=== PATIENT | female | born 1965 | race Caucasian/White ===

== ENCOUNTER 2018-04-24 10:09 | Inpatient (IN) ==
[2018-04-24] MEDS ORDERED: Ketorolac Inj 30 MG/ML (IVP) Vial IV.PUSH ONE (12:05)
[2018-04-24] MEDS ORDERED: Sod Chloride 0.9% Inj 1,000 ML IV.SIG ONE (12:05)
--- NOTE | 2018-04-24 12:08 | ED ---
HPI General Chief complaint: Abdominal Pain Stated complaint: left side pain/vomiting Time Seen by Provider: 04/24/18 12:00 History of Present Illness HPI narrative: Patient is a 52-year-old female presents emergency department quadrant greater than left upper quadrant abdominal pain started yesterday afternoon. This been associated with some nausea and nonbilious nonbloody emesis. No diarrhea no constipation no blood in the stool no vaginal bleeding or vaginal discharge. Patient's concerned that it might be her gallbladder because many of her family members have had gallbladder problems. No fevers. States the pain is moderate, cramping, left lower quadrant, no radiation, associated with nausea vomiting as above. Related Data Home Medications Medication Instructions Recorded Confirmed No Known Home Medications 04/24/18 04/24/18 Allergies Allergy/AdvReac Type Severity Reaction Status Date / Time No Known Allergies Allergy Verified 04/24/18 12:05 Review of Systems Except as stated in HPI: all other systems reviewed are negative PMFSH Social History Social History Second Hand Smoke Exposure: Yes Smoking Status: Current every day smoker Tobacco Type: Cigarettes How Often Do You Have a Drink Containing Alcohol: 2 to 4 times a month Recent Travel in [facility] within the Last 8 Weeks: No Recent Out of Country Travel within the Last 8 Weeks: No Exam Narrative Exam Narrative: GENERAL: Well-developed will nurse, vomiting on my initial evaluation, SKIN: Focused skin assessment warm/dry. HEAD: Atraumatic. Normocephalic. EYES: Pupils equal and round. No scleral icterus. No injection or drainage. ENT: No nasal bleeding or discharge. Mucous membranes pink and moist. NECK: Trachea midline. No JVD. CARDIOVASCULAR: Regular rate and rhythm. No murmur appreciated. RESPIRATORY: No accessory muscle use. Clear to auscultation. Breath sounds equal bilaterally. GASTROINTESTINAL: Abdomen soft, non-tender, nondistended. Hepatic and splenic margins not palpable. No rebound no percussive tenderness, no CVA tenderness. MUSCULOSKELETAL: No obvious deformities. No clubbing. No cyanosis. No edema. NEUROLOGICAL: Awake and alert. No obvious cranial nerve deficits. Motor grossly within normal limits. Normal speech. PSYCHIATRIC: Appropriate mood and affect; insight and judgment normal. Course Initial Documented Vital Signs Temperature 97.6 F 04/24/18 10:59 Pulse Rate 63 04/24/18 10:59 Respiratory Rate 16 04/24/18 10:59 Blood Pressure 157/77 H 07/15/18 10:59 Pulse Oximetry 99 04/24/18 10:59 Last Documented Vital Signs Temperature 97.6 F 04/24/18 10:59 Pulse Rate 56 L 04/24/18 13:42 Respiratory Rate 17 04/24/18 13:42 Blood Pressure 135/66 04/24/18 13:42 Pulse Oximetry 98 04/24/18 13:42 Medical Decision Making MDM Narrative Medical decision making narrative: Patient roomed in the ER, minimally elevated H/H indicated some dehydration. lipase negative, CMP negative. CT scan indicated given recurrent emesis and discomfort. Expecting diverticulitis instead find pancreatitis and gallstones which raises concern for gallstone pancreatitis. Patient discussed with Dr. Sylvester and ultimately admitted to [facility]. MRCP ordered after discussion with Dr. Sylvester. Differential Diagnosis Differential Diagnosis: Diverticulitis, diverticulosis, colitis, gastritis, gastroenteritis, pancreatitis unlikely, cholecystitis unlikely. Lab Data Result diagrams: 04/24/18 12:10 04/24/18 12:10 Lab Results 04/24/18 04/24/18 04/24/18 Range/Units 12:05 12:10 12:10 WBC 10.4 (4.0-11.0) th/mm3 RBC 4.94 (4.00-5.30) mil/mm3 Hgb 16.1 H (11.6-15.3) gm/dL Hct 47.0 H (35.0-46.0) % MCV 95.2 (80.0-100.0) fL MCH 32.6 (27.0-34.0) pg MCHC 34.3 (32.0-36.0) % RDW 13.3 (11.6-17.2) % Plt Count 256 (150-450) th/mm3 MPV 7.5 (7.0-11.0) fL Neut % (Auto) 85.1 H (16.0-70.0) % Lymph % (Auto) 11.0 (9.0-44.0) % [place] % (Auto) 3.5 (0.0-8.0) % Eos % (Auto) 0.1 (0.0-4.0) % Baso % (Auto) 0.3 (0.0-2.0) % Neut # (Auto) 8.9 H (1.8-7.7) th/mm3 Lymph # (Auto) 1.1 (1.0-4.8) th/mm3 [place] # (Auto) 0.4 (0.0-0.9) th/mm3 Eos # (Auto) 0.0 (0.0-0.4) th/mm3 Baso # (Auto) 0.0 (0.0-0.2) th/mm3 WBC Differential . Differential Comment Auto diff final Sodium 139 (136-145) meq/L Potassium 4.9 (3.5-5.1) meq/L Chloride 107 (98-107) meq/L Carbon Dioxide 25.1 (21.0-32.0) meq/L Anion Gap 7 (5-15) meq/L BUN 9 (7-18) mg/dL Creatinine 0.96 (0.50-1.00) mg/dL Estimated GFR 61 L (>89) mL/min Random Glucose 127 H (74-106) mg/dL Calcium 9.0 (8.5-10.1) mg/dL Total Bilirubin 0.5 (0.2-1.0) mg/dL AST 25 (15-37) U/L ALT 19 (10-53) U/L Alkaline Phosphatase 96 (45-117) U/L Total Protein 8.2 (6.4-8.2) g/dL Albumin 4.0 (3.4-5.0) g/dL Amylase (25-115) U/L Lipase 255 (73-393) U/L Urine Color Yellow (Yellw/Straw) Urine Clarity Hazy H (Clear) Urine pH 5.0 (5.0-8.5) Ur Specific [place] 1.020 (1.002-1.035) Urine Protein Negative (Neg-Trace) mg/dL Urine Glucose (UA) Negative (Negative) mg/dL Urine Ketones Trace H (Negative) mg/dL Urine Occult Blood Moderate H (Negative) Urine Nitrate Negative (Negative) Urine Bilirubin Negative (Negative) Urine Urobilinogen Less than 2 (Less than 2) mg/dL Ur Leukocyte Esterase Negative (Negative) Urine RBC 4 H (0-3) /hpf Urine WBC 2 (0-5) /hpf Ur Squamous Epith Cells 3 (0-5) /hpf Urine Bacteria Moderate H (None) /hpf Urine Mucus Few H (Occasional) /lpf Micro UA Comment Culture indicated Urine Culture Comments Culture indicated 04/24/18 Range/Units 12:10 WBC (4.0-11.0) th/mm3 RBC (4.00-5.30) mil/mm3 Hgb (11.6-15.3) gm/dL Hct (35.0-46.0) % MCV (80.0-100.0) fL MCH (27.0-34.0) pg MCHC (32.0-36.0) % RDW (11.6-17.2) % Plt Count (150-450) th/mm3 MPV (7.0-11.0) fL Neut % (Auto) (16.0-70.0) % Lymph % (Auto) (9.0-44.0) % [place] % (Auto) (0.0-8.0) % Eos % (Auto) (0.0-4.0) % Baso % (Auto) (0.0-2.0) % Neut # (Auto) (1.8-7.7) th/mm3 Lymph # (Auto) (1.0-4.8) th/mm3 [place] # (Auto) (0.0-0.9) th/mm3 Eos # (Auto) (0.0-0.4) th/mm3 Baso # (Auto) (0.0-0.2) th/mm3 WBC Differential Differential Comment Sodium (136-145) meq/L Potassium (3.5-5.1) meq/L Chloride (98-107) meq/L Carbon Dioxide (21.0-32.0) meq/L Anion Gap (5-15) meq/L BUN (7-18) mg/dL Creatinine (0.50-1.00) mg/dL Estimated GFR (>89) mL/min Random Glucose (74-106) mg/dL Calcium (8.5-10.1) mg/dL Total Bilirubin (0.2-1.0) mg/dL AST (15-37) U/L ALT (10-53) U/L Alkaline Phosphatase (45-117) U/L Total Protein (6.4-8.2) g/dL Albumin (3.4-5.0) g/dL Amylase 39 (25-115) U/L Lipase (73-393) U/L Urine Color (Yellw/Straw) Urine Clarity (Clear) Urine pH (5.0-8.5) Ur Specific [place] (1.002-1.035) Urine Protein (Neg-Trace) mg/dL Urine Glucose (UA) (Negative) mg/dL Urine Ketones (Negative) mg/dL Urine Occult Blood (Negative) Urine Nitrate (Negative) Urine Bilirubin (Negative) Urine Urobilinogen (Less than 2) mg/dL Ur Leukocyte Esterase (Negative) Urine RBC (0-3) /hpf Urine WBC (0-5) /hpf Ur Squamous Epith Cells (0-5) /hpf Urine Bacteria (None) /hpf Urine Mucus (Occasional) /lpf Micro UA Comment Urine Culture Comments Imaging Data Radiologist's impression: Abdomen/Pelvis CT 04/24/18 12:05 CONCLUSION: Cholelithiasis and findings of pancreatitis without abscess or pseudocyst. No common duct stone is seen Diverticulosis without evidence of diverticulitis. Cholangiopancreatography MRI 04/24/18 15:15 CONCLUSION: 1. Findings of pancreatitis as above. No evidence of common duct stone Discharge Plan Discharge Disposition Patient Disposition: 30 Still Patient Discharge Condition Condition: Stable Discharge Details Diagnosis: Pancreatitis Physicians Team ED Provider: Marquis Coreas Primary Care Provider: Primary Care Jenny Ruiz Attending Provider: Frederick Medrano Other Providers: Vinay Sylvester Status ED Status: Admitted Patient
[2018-04-24 12:40] LABS: Baso % (Auto) 0.3 % (0.0-2.0); Eos % (Auto) 0.1 % (0.0-4.0); Hemoglobin 16.1 gm/dL (11.6-15.3); Lymph # (Auto) 1.1 th/mm3 (1.0-4.8); Mean Corpuscular HGB Conc 34.3 % (32.0-36.0); Mean Corpuscular Hemoglobin 32.6 pg (27.0-34.0); Mean Corpuscular Volume 95.2 fL (80.0-100.0); Mean Platelet Volume 7.5 fL (7.0-11.0); Mono # (Auto) 0.4 th/mm3 (0.0-0.9); Mono % (Auto) 3.5 % (0.0-8.0); Neut # (Auto) 8.9 th/mm3 (1.8-7.7); Neut % (Auto) 85.1 % (16.0-70.0); Platelet Count 256 th/mm3 (150-450); Red Blood Count 4.94 mil/mm3 (4.00-5.30); Red Cell Distribution Width 13.3 % (11.6-17.2); White Blood Count 10.4 th/mm3 (4.0-11.0)
[2018-04-24 12:55] LABS: Bacteria,Urine Moderate /hpf; Bilirubin,Urine Negative (Negative); Clarity,Urine Hazy (Clear); Color,Urine Yellow (Yellw/Straw); Glucose,Urine (UA) Negative (Negative); Leukocyte Esterase,Urine Negative (Negative); Mucus,Urine Few /lpf (Occasional); Nitrite,Urine Negative (Negative); Squamous Epithelial Cell,Urine 3 /hpf (0-5)
[2018-04-24 13:10] LABS: Alanine Aminotransferase 19 U/L (10-53); Alkaline Phosphatase 96 U/L (45-117); Total Protein 8.2 g/dL (6.4-8.2)
[2018-04-24 13:13] LABS: Anion Gap 7 meq/L (5-15); Aspartate Aminotransferase 25 U/L (15-37); Blood Urea Nitrogen 9 mg/dL (7-18); Carbon Dioxide 25.1 meq/L (21.0-32.0); Chloride 107 meq/L (98-107); Glomerular Filtration Rate 61 mL/min (>89); Glucose,Random 127 mg/dL (74-106); Lipase 255 U/L (73-393); Potassium 4.9 meq/L (3.5-5.1); Sodium 139 meq/L (136-145)
--- NOTE | 2018-04-24 14:45 | CT ---
EXAM DATE: 04/24/2018 2:20 PM EDT AGE/SEX: 52 years / Female INDICATIONS: Left side abdomen pain with vomiting today CLINICAL DATA: This is the patient's initial encounter. Patient reports that signs and symptoms have been present for 1 day and indicates a pain score of 9/10. MEDICAL/SURGICAL HISTORY: None. Umbilical hernia repair. section. ORAL CONTRAST: No oral contrast ingested. RADIATION DOSE: 11.89 CTDI (mGy) COMPARISON: No prior exams available for comparison. TECHNIQUE: Multiple contiguous axial images were obtained through the abdomen and pelvis following b olus infusion of 99ML ml Omnipaque 350 (iohexol) nonionic water-soluble contrast as a single exam d ose. No oral contrast ingested. Using automated exposure control and adjustment of the mA and/or kV according to patient size, radiation dose was kept as low as reasonably achievable to obtain optimal diagnostic quality images. DICOM format image data is available electronically for review and compar lui. FINDINGS: Examination of the lung bases demonstrates no abnormality. No pleural fluid is identified. No pulmona ry nodules are present. A small hiatal hernia is present. The liver and spleen are normal in size an d no focal defects are identified. There are multiple gallstones within the gallbladder without wall thickening or pericholecystic fluid the largest measuring 10 mm there is edema involving the pancrea tic body and tail characteristic of pancreatitis. Correlation with laboratory studies would be helpfu l. No common duct stone is seen. The adrenal glands and kidneys appear normal bilaterally. No hydrone phrosis or mass lesions are identified. Examination of the pelvis demonstrates no evidence of free fluid or pelvic mass. No abnormally enlarg ed inguinal or retroperitoneal lymph nodes are present. The bladder is unremarkable. There is diverti culosis without evidence of diverticulitis. CONCLUSION: Cholelithiasis and findings of pancreatitis without abscess or pseudocyst. No common duct stone is se en Diverticulosis without evidence of diverticulitis. Electronically signed by: Delmer Wilkinson MD 04/24/2018 2:43 PM EDT
[2018-04-24] MEDS ORDERED: Morphine Sulfate Inj 8 MG/ML Vial IV.PUSH ONE (15:43)
--- NOTE | 2018-04-24 16:45 | MR ---
EXAM DATE: 04/24/2018 4:34 PM EDT AGE/SEX: 52 years / Female INDICATIONS: Abdominal pain. Abnormal CT. CLINICAL DATA: This is the patient's initial encounter. Patient reports that signs and symptoms have been present for 1 day and indicates a pain score of 9/10. MEDICAL/SURGICAL HISTORY: None. section. Umbilical hernia repair. COMPARISON: No prior exams available for comparison. TECHNIQUE: Multiplanar, multisequence images of the abdomen were obtained without contrast including dedicated cholangiographic images. FINDINGS: The liver and spleen are normal in size and signal intensity without evidence of focal mass. Inflamm atory changes in the pancreas are again identified characteristic of pancreatitis. The adrenal glands and kidneys appear normal bilaterally. No hydronephrosis or mass lesions are identified. Examination of biliary tree with multiplanar and 3-D reconstruction demonstrates no evidence of commo n duct stone. No intrahepatic or extra hepatic ductal dilatation is identified. The pancreatic duct i s unremarkable. CONCLUSION: 1. Findings of pancreatitis as above. No evidence of common duct stone Electronically signed by: Delmer Wilkinson MD 04/24/2018 4:44 PM EDT
--- NOTE | 2018-04-24 17:05 | P.HP ---
History of Present Illness Primary Care Physician: No Primary Care Physician History of Present Illness: 52-year-old white female being admitted for suspected gallstone pancreatitis. Patient was in usual state of health until around 2 AM earlier this morning she woke up with some abdominal pain. Pain is worse progressed to a 9/10. Was alleviated with bending forward. Was greater on her left upper quadrant comparison to her right. Had some nausea and subjective fevers as well. Ultimately had some bilious emesis around 4 AM, was unable to hold down liquids. The evening prior the patient reports having to greasy hotdogs. Emergency department the patient had a CT abdomen done which showed an inflamed pancreas although her lipase was within normal limits. She also has her even MRCP done which shows no common bile duct dilatation. The patient states that at least for the past month she has had intermittent dyspepsia associated specifically with greasier meals. Patient reports that since her 's about 3 years ago she did drink about a pack a night for about 4 nights a week for that year. Since then she says she is tapered off and now drinks only on the weekends. Inpatient Certification: I certify that the inpatient services were ordered in accordance with Medicare regulations governing the order. This includes certification that hospital inpatient services are reasonable and necessary and in the case of services not specified as inpatient-only under 42 CFR 419.22(n), that they are appropriately provided as inpatient services in accordance to with the 2-midnight benchmark under 43 CFR 412.3(e) Estimated Total Length of Stay (Days): 2 Plans for Post Hospital Care: Home Review of Systems All other systems reviewed negative except as stated in HPI PMFSH - History History Provided By: Patient - Tobacco History Second Hand Smoke Exposure: Yes Tobacco Use In Past 30 Days: Yes Smoking Status: Current every day smoker Tobacco Type: Cigarettes - Alcohol History How Often Do You Have a Drink Containing Alcohol: 2 to 4 times a month - Travel History Recent Travel in the [place] Within the Last 8 Weeks: No Recent Travel Out of the Country Within the Last 8 Weeks: No - Immunization History Tetanus Immunization: <5 Years Medications and Allergies Active Medications: Active Medications Sodium Chloride (Ns Inj) 1,000 mls @ 125 mls/hr IV.CONT .Q8H TOYIN Oxycodone HCl (Roxicodone) 10 mg PO Q4H PRN PRN Reason: Acute Pain 1-10 Sodium Chloride (Ns Flush) 2 ml IV.FLUSH PRN PRN PRN Reason: FLUSH AFTER USING IV ACCESS Sodium Chloride (Ns Flush) 2 ml IV.FLUSH BID TOYIN Sodium Chloride (Ns Flush) 2 ml IV.FLUSH PRN PRN PRN Reason: FLUSH AFTER USING IV ACCESS Allergies Allergy/AdvReac Type Severity Reaction Status Date / Time No Known Allergies Allergy Verified 04/24/18 12:05 Home Medications Medication Instructions Recorded Confirmed Type No Known Home Medications 04/24/18 04/24/18 History Exam Vital signs: Vital Signs 04/24/18 10:59 04/24/18 12:14 04/24/18 13:42 Temperature 97.6 F Pulse Rate 63 56 L Respiratory Rate 16 17 Blood Pressure 157/77 H 135/66 Pulse Oximetry 99 98 98 Narrative: VS: afebrile GENERAL: Lying in bed, no acute distress SKIN: Warm and dry. EYES: No scleral icterus. No injection or drainage. ENT: No nasal bleeding or discharge. Mucous membranes pink and moist. CARDIOVASCULAR: Regular rate and rhythm. no murmurs RESPIRATORY: No accessory muscle use. Clear to auscultation. Breath sounds equal bilaterally. GASTROINTESTINAL: Abdomen soft, has diffuse tenderness to palpation which worsens with deeper palpation, greater on the left upper quadrant and the right , no suprapubic tenderness palpation, no obvious masses palpated Extremities: No clubbing, cyanosis, or edema. No obvious deformities. MUSCULOSKELETAL: adequate muscle bulk and tone for age and habitus NEUROLOGICAL: Awake and alert. No obvious cranial nerve deficits. No facial droop nor slurred speech noted. PSYCHIATRIC: Appropriate mood and affect; insight and judgment normal. Results - Labs CBC & Chem 7: 04/24/18 12:10 04/24/18 12:10 Labs: Laboratory Results - last 24 hr 04/24/18 04/24/18 04/24/18 12:05 12:10 12:10 WBC 10.4 RBC 4.94 Hgb 16.1 H Hct 47.0 H MCV 95.2 MCH 32.6 MCHC 34.3 RDW 13.3 Plt Count 256 MPV 7.5 Neut % (Auto) 85.1 H Lymph % (Auto) 11.0 [place] % (Auto) 3.5 Eos % (Auto) 0.1 Baso % (Auto) 0.3 Neut # (Auto) 8.9 H Lymph # (Auto) 1.1 [place] # (Auto) 0.4 Eos # (Auto) 0.0 Baso # (Auto) 0.0 WBC Differential . Differential Comment Auto diff final Sodium 139 Potassium 4.9 Chloride 107 Carbon Dioxide 25.1 Anion Gap 7 BUN 9 Creatinine 0.96 Estimated GFR 61 L Random Glucose 127 H Calcium 9.0 Total Bilirubin 0.5 AST 25 ALT 19 Alkaline Phosphatase 96 Total Protein 8.2 Albumin 4.0 Amylase Lipase 255 Urine Color Yellow Urine Clarity Hazy H Urine pH 5.0 Ur Specific [place] 1.020 Urine Protein Negative Urine Glucose (UA) Negative Urine Ketones Trace H Urine Occult Blood Moderate H Urine Nitrate Negative Urine Bilirubin Negative Urine Urobilinogen Less than 2 Ur Leukocyte Esterase Negative Urine RBC 4 H Urine WBC 2 Ur Squamous Epith Cells 3 Urine Bacteria Moderate H Urine Mucus Few H Micro UA Comment Culture indicated Urine Culture Comments Culture indicated 04/24/18 12:10 WBC RBC Hgb Hct MCV MCH MCHC RDW Plt Count MPV Neut % (Auto) Lymph % (Auto) [place] % (Auto) Eos % (Auto) Baso % (Auto) Neut # (Auto) Lymph # (Auto) [place] # (Auto) Eos # (Auto) Baso # (Auto) WBC Differential Differential Comment Sodium Potassium Chloride Carbon Dioxide Anion Gap BUN Creatinine Estimated GFR Random Glucose Calcium Total Bilirubin AST ALT Alkaline Phosphatase Total Protein Albumin Amylase 39 Lipase Urine Color Urine Clarity Urine pH Ur Specific [place] Urine Protein Urine Glucose (UA) Urine Ketones Urine Occult Blood Urine Nitrate Urine Bilirubin Urine Urobilinogen Ur Leukocyte Esterase Urine RBC Urine WBC Ur Squamous Epith Cells Urine Bacteria Urine Mucus Micro UA Comment Urine Culture Comments - Imaging Impressions Abdomen/Pelvis CT 04/24/18 12:05 CONCLUSION: Cholelithiasis and findings of pancreatitis without abscess or pseudocyst. No common duct stone is seen Diverticulosis without evidence of diverticulitis. Cholangiopancreatography MRI 04/24/18 15:15 CONCLUSION: 1. Findings of pancreatitis as above. No evidence of common duct stone Caprini VTE Risk Assessment Caprini VTE Risk Assessment: Moderate/High Risk (score >= 2) Caprini Risk Assessment Model: Point Value = 1 Point Value = 2 Point Value = 3 Point Value = 5 Age 41-60 Minor surgery BMI > 25 kg/m2 Swollen legs Varicose veins or History of unexplained or recurrent spontaneous Oral contraceptives or hormone replacement Sepsis (< 1 month) Serious lung disease, including pneumonia (< 1 month) Abnormal pulmonary function Acute myocardial infarction Congestive heart failure (< 1 month) History of inflammatory bowel disease Medical patient at bed rest Age 61-74 Arthroscopic surgery Major open surgery (> 45 min) Laparoscopic surgery (> 45 min) Malignancy Confined to bed (> 72 hours) Immobilizing plaster cast Central venous access Age >= 75 History of VTE Family history of VTE Factor V Leiden Prothrombin [id number] Lupus anticoagulant Anticardiolipin antibodies Elevated serum homocysteine Heparin-induced thrombocytopenia Other congenital or acquired thrombophilia Stroke (< 1 month) Elective arthroplasty Hip, pelvis, or leg fracture Acute spinal cord injury (< 1 month) Prophylaxis Regimen: Total Risk Factor Score Risk Level Prophylaxis Regimen 0-1 Low Early ambulation 2 Moderate Order ONE of the following: *Sequential Compression Device (SCD) *Heparin 5000 units SQ BID 3-4 Higher Order ONE of the following medications: *Heparin 5000 units SQ TID *Enoxaparin/Lovenox 40 mg SQ daily (WT < 150 kg, CrCl > 30 mL/min) *Enoxaparin/Lovenox 30 mg SQ daily (WT < 150 kg, CrCl > 10-29 mL/min) *Enoxaparin/Lovenox 30 mg SQ BID (WT < 150 kg, CrCl > 30 mL/min) AND/OR *Sequential Compression Device (SCD) 5 or more Highest Order ONE of the following medications: *Heparin 5000 units SQ TID (Preferred with Epidurals) *Enoxaparin/Lovenox 40 mg SQ daily (WT < 150 kg, CrCl > 30 mL/min) *Enoxaparin/Lovenox 30 mg SQ daily (WT < 150 kg, CrCl > 10-29 mL/min) *Enoxaparin/Lovenox 30 mg SQ BID (WT < 150 kg, CrCl > 30 mL/min) AND *Sequential Compression Device (SCD) Assessment and Plan - Plan 52-year-old white female being admitted for suspected gallstone pancreatitis Abdominal pain -Likely gallstone pancreatitis as the patient's pain is much improved and MRCP is negative even though lipase is also negative, likely that pancreas has not had enough time to react to secrete large amounts of lipase as this is a very early presentation clinically speaking -GI consulted, following -Pain medications as needed as well as IVFs -We will obtain gallbladder ultrasound and may consider HIDA scan -N.p.o. for now, may advance to clear liquid diet as tolerated likely tomorrow morning assuming further imaging studies are negative
[2018-04-24] MEDS: Sod Chloride 0.9% Inj 1,000 ML IV.CONT SCH (17:32)
--- NOTE | 2018-04-24 18:43 | US ---
EXAM DATE: 04/24/2018 6:36 PM EDT AGE/SEX: 52 years / Female INDICATIONS: Right upper quadrant pain. CLINICAL DATA: This is the patient's initial encounter. Patient reports that signs and/or symptoms h ave been present for 1 day and indicates a pain score of 4/10. MEDICAL/SURGICAL HISTORY: . Right upper quadrant pain. . COMPARISON: [facility] – [place], CT ABDOMEN & PELVIS W CONTRAST, 04/24/2018. . MEASUREMENTS: Liver:__ 15.6 cm. Common Bile Duct:__ 3mm. FINDINGS: Liver: Normal echotexture without focal lesion or ductal dilatation. Portal Vein: Hepatopedal flow seen in portal vein. Common Duct: No intraluminal mass or stone visualized. Gallbladder: There is a 2.6 cm x 0.3 x 0.5 cm calcification seen in the gallbladder fossa R centimet er gallstone within a collapsed gallbladder. Pancreas: Not well visualized. Right Kidney: Normal echotexture and cortical thickness. No mass or hydronephrosis. Other: None. CONCLUSION: Gallstone. Electronically signed by: Phani Riojas MD 04/24/2018 6:42 PM EDT
[2018-04-25] MEDS: Sod Chloride 0.9% Inj 1,000 ML IV.CONT SCH ×3 (01:37→16:20)
--- NOTE | 2018-04-25 11:05 | P.CONGI ---
History of Present Illness Consult date: 04/25/18 Consult reason: Pancreatitis Chief complaint: pancreatitis, possible gallstone related History of Present Illness: This is a 52 yo F who presented to the ER yesterday with complaints of abdominal pain that began at 230 in the morning yesterday, pain started suddenly , located in her epigastric and LUQ and radiates around to her back and under her ribs. Describes pain as aching and constant, states the pain was causing her to be restless because she could not get comfortable. Pt reports she began vomiting at 630 yesterday morning, bile colored, denies hematemesis and coffee ground emesis. Pt reports occasional heartburn, but states maybe only once a month. Denies recent unintentional weight loss and changes in bowel movements. Since admission pt has had CT and MRCP which were both consistent with pancreatitis. Pt denies history of pancreatitis. Reports ETOH, couple times a week, has either 2-3 glasses of wine or 3-4 beers when she drinks. Smokes 1/2 PPD. Denies NSAID use. Has never had EGD or colonoscopy before. Of note, pt reports strong family history of needing to have cholecystectomy, imaging does reveal cholelithiasis. Pt reports occasional RUQ pain after eating meals. Since admission, pt reports significant improvement in symptoms. States she hasn 't needed nausea medication since last night and hasn't needed pain medication since early this morning and the pain is well controlled. <Sariah Garces - Last Filed: 04/25/18 10:49> Review of Systems Gastrointestinal: Reports abdominal pain, Reports heartburn, Reports nausea, Reports vomiting, Denies black, tarry stools, Denies bright, red blood in stools , Denies coffee ground vomit, Denies vomiting blood <Sariah Garces - Last Filed: 04/25/18 10:49> PMFSH - History History Provided By: Patient - Medical History Medical History: Medical History (Last Updated 04/24/18 @ 22:40 by Promise Joaquin RN) delivery delivered - Surgical History Surgical History: Surgical History (Last Updated 04/24/18 @ 22:40 by Promise Joaquin RN) History of umbilical hernia repair - Tobacco History Second Hand Smoke Exposure: No Tobacco Use In Past 30 Days: Yes Smoking Status: Heavy tobacco smoker Tobacco Type: Cigarettes - Alcohol History How Often Do You Have a Drink Containing Alcohol: 2 to 3 times a week - Substance Use History Substance History: No History of Abuse - Travel History Recent Travel in the [place] Within the Last 8 Weeks: No Recent Travel Out of the Country Within the Last 8 Weeks: No - Immunization History Tetanus Immunization: <5 Years <Sariah Garces - Last Filed: 04/25/18 10:49> - Medical History Medical History: Medical History (Last Updated 04/24/18 @ 22:40 by Promise Joaquin RN) delivery delivered - Surgical History Surgical History: Surgical History (Last Updated 04/24/18 @ 22:40 by Promise Joaquin, ZHANE) History of umbilical hernia repair <Brennan Reese - Last Filed: 04/27/18 15:29> Medications and Allergies Active Medications: Active Medications Sodium Chloride (Ns Inj) 1,000 mls @ 125 mls/hr IV.CONT .Q8H [facility] Last Admin: 04/25/18 08:18 Dose: 125 mls/hr Ondansetron HCl (Zofran Odt) 4 mg PO Q6H PRN PRN Reason: NAUSEA Last Admin: 04/24/18 19:49 Dose: 4 mg Oxycodone HCl (Roxicodone) 10 mg PO Q4H PRN PRN Reason: Acute Pain 1-10 Last Admin: 04/25/18 00:02 Dose: 10 mg Sodium Chloride (Ns Flush) 2 ml IV.FLUSH PRN PRN PRN Reason: FLUSH AFTER USING IV ACCESS Sodium Chloride (Ns Flush) 2 ml IV.FLUSH BID [facility] Last Admin: 04/25/18 08:18 Dose: Not Given Sodium Chloride (Ns Flush) 2 ml IV.FLUSH PRN PRN PRN Reason: FLUSH AFTER USING IV ACCESS <Sariah Garces - Last Filed: 04/25/18 10:49> Active Medications: Active Medications Hydrocodone Bitart/Acetaminophen ([place] 5/325) 1 tab PO Q4H PRN PRN Reason: pain 1-5 Hydrocodone Bitart/Acetaminophen ([place] 5/325) 2 tab PO Q4H PRN PRN Reason: Pain 6-10 Last Admin: 04/27/18 11:10 Dose: 2 tab Hydromorphone/Sodium Chloride (Dilaudid Inspector Dials Inj) 6 mg in 30 mls @ 0 mls/hr [facility] UNSCH PRN PRN Reason: per [facility] parameters Last Admin: 04/27/18 07:25 Dose: 0 mls/hr Sodium Chloride (Ns Inj) 1,000 mls @ 84 mls/hr IV.CONT .[id number] [facility] Naloxone HCl (Narcan Inj) 0.4 mg IV.PUSH PRN PRN PRN Reason: SEE LABEL COMMENTS Ondansetron HCl (Zofran Odt) 4 mg PO Q6H PRN PRN Reason: NAUSEA Last Admin: 04/26/18 19:52 Dose: 4 mg Sodium Chloride (Ns Flush) 2 ml IV.FLUSH BID [facility] Last Admin: 04/27/18 12:26 Dose: Not Given Sodium Chloride (Ns Flush) 2 ml IV.FLUSH PRN PRN PRN Reason: FLUSH AFTER USING IV ACCESS <Brennan Reese E - Last Filed: 04/27/18 15:29> Allergies Allergy/AdvReac Type Severity Reaction Status Date / Time No Known Allergies Allergy Verified 04/24/18 12:05 Home Medications Medication Instructions Recorded Confirmed Type No Known Home Medications 04/24/18 04/24/18 History Exam Vital signs: Vital Signs 04/24/18 10:59 04/24/18 12:14 04/24/18 13:42 Temperature 97.6 F Pulse Rate 63 56 L Respiratory Rate 16 17 Blood Pressure 157/77 H 135/66 Pulse Oximetry 99 98 98 04/24/18 17:52 04/24/18 19:44 04/24/18 23:41 Temperature 98.1 F 98.2 F Pulse Rate 60 62 59 L Respiratory Rate 17 18 20 Blood Pressure 124/74 116/78 128/69 Pulse Oximetry 98 97 96 04/25/18 03:54 04/25/18 06:00 04/25/18 08:00 Temperature 98.3 F 98.8 F Pulse Rate 58 L 60 Respiratory Rate 20 18 Blood Pressure 99/54 L 102/63 103/56 L Pulse Oximetry 96 94 L Intake & Output 04/24/18 04/25/18 04/25/18 18:59 06:59 18:59 Intake Total 2029 1000 / 1000 Balance 2029 1000 / 1000 Intake: IV 2000 / 2000 1000 / 1000 NS Inj 1,000 ML @ 125 mls/hr IV 1000 / 1000 1000 / 1000 .CONT .Q8H [facility] Rx#:[id number] Oral Other: # Voids 1 Date of Last Bowel Movement 04/24/18 - Constitutional no acute distress - Routine HEENT Exam Head: Present: normocephalic, atraumatic - Routine Respiratory Exam Present: CTA bilaterally. Absent: accessory muscle use - Routine Cardiovascular Exam Present: RRR - Routine Abdominal Exam Present: soft, normoactive bowel sounds, tenderness (mild epigastric and LUQ tenderness ). Absent: distended, rebound, guarding, firm - Routine Skin Exam Present: dry, warm - Routine Neurological Exam Present: alert, oriented X3 <Sariah Garces - Last Filed: 04/25/18 10:49> Vital signs: Vital Signs 04/26/18 15:30 04/26/18 15:45 04/26/18 16:00 Temperature Pulse Rate 63 69 58 L Respiratory Rate 16 16 18 Blood Pressure 127/71 124/67 124/74 Pulse Oximetry 95 97 95 04/26/18 16:15 04/26/18 16:30 04/26/18 16:45 Temperature Pulse Rate 69 64 58 L Respiratory Rate 18 18 18 Blood Pressure 113/64 124/70 127/76 Pulse Oximetry 96 95 95 04/26/18 17:00 04/26/18 17:59 04/26/18 20:00 Temperature 97.7 F 97.8 F 98 F Pulse Rate 65 59 L 51 L Respiratory Rate 19 17 17 Blood Pressure 115/67 120/73 133/68 Pulse Oximetry 96 96 97 04/27/18 00:00 04/27/18 04:00 04/27/18 08:00 Temperature 98.1 F 98.3 F 98.3 F Pulse Rate 56 L 59 L 67 Respiratory Rate 17 17 5 L Blood Pressure 142/76 H 139/74 119/62 Pulse Oximetry 92 L 95 94 L 04/27/18 12:00 04/27/18 12:24 Temperature 98.1 F Pulse Rate 62 Respiratory Rate 18 18 Blood Pressure 136/66 Pulse Oximetry 96 Intake & Output 04/26/18 04/27/18 04/27/18 18:59 06:59 18:59 Intake Total 4000 / 4000 1240 / 1240 Output Total 850 / 850 715 / 715 Balance 3150 / 3150 525 / 525 Weight 78.5 kg Intake: IV 1000 / 1000 1000 / 1000 NS Inj 1,000 ML @ 125 mls/hr IV 1000 / 1000 1000 / 1000 .CONT .Q8H [facility] Rx#:[id number] Oral 0 / 0 240 / 240 Anesthesia Amount 3000 / 3000 Output: Urine 300 / 300 600 / 600 Estimated Blood Loss 500 / 500 Wound Drainage 50 / 50 115 / 115 # 1 Abdomen 50 / 50 115 / 115 Other: # Voids 1 3 Date of Last Bowel Movement 04/24/18 # Bowel Movements 0 <Brennan Reese E - Last Filed: 04/27/18 15:29> Results - Labs CBC & Chem 7: 04/24/18 12:10 04/24/18 12:10 Labs: Laboratory Results - last 24 hr 04/24/18 04/24/18 04/24/18 12:05 12:10 12:10 WBC 10.4 RBC 4.94 Hgb 16.1 H Hct 47.0 H MCV 95.2 MCH 32.6 MCHC 34.3 RDW 13.3 Plt Count 256 MPV 7.5 Neut % (Auto) 85.1 H Lymph % (Auto) 11.0 [place] % (Auto) 3.5 Eos % (Auto) 0.1 Baso % (Auto) 0.3 Neut # (Auto) 8.9 H Lymph # (Auto) 1.1 [place] # (Auto) 0.4 Eos # (Auto) 0.0 Baso # (Auto) 0.0 WBC Differential . Differential Comment Auto diff final Sodium 139 Potassium 4.9 Chloride 107 Carbon Dioxide 25.1 Anion Gap 7 BUN 9 Creatinine 0.96 Estimated GFR 61 L Random Glucose 127 H Calcium 9.0 Total Bilirubin 0.5 AST 25 ALT 19 Alkaline Phosphatase 96 Total Protein 8.2 Albumin 4.0 Amylase Lipase 255 Urine Color Yellow Urine Clarity Hazy H Urine pH 5.0 Ur Specific [place] 1.020 Urine Protein Negative Urine Glucose (UA) Negative Urine Ketones Trace H Urine Occult Blood Moderate H Urine Nitrate Negative Urine Bilirubin Negative Urine Urobilinogen Less than 2 Ur Leukocyte Esterase Negative Urine RBC 4 H Urine WBC 2 Ur Squamous Epith Cells 3 Urine Bacteria Moderate H Urine Mucus Few H Micro UA Comment Culture indicated Urine Culture Comments Culture indicated 04/24/18 12:10 WBC RBC Hgb Hct MCV MCH MCHC RDW Plt Count MPV Neut % (Auto) Lymph % (Auto) [place] % (Auto) Eos % (Auto) Baso % (Auto) Neut # (Auto) Lymph # (Auto) [place] # (Auto) Eos # (Auto) Baso # (Auto) WBC Differential Differential Comment Sodium Potassium Chloride Carbon Dioxide Anion Gap BUN Creatinine Estimated GFR Random Glucose Calcium Total Bilirubin AST ALT Alkaline Phosphatase Total Protein Albumin Amylase 39 Lipase Urine Color Urine Clarity Urine pH Ur Specific [place] Urine Protein Urine Glucose (UA) Urine Ketones Urine Occult Blood Urine Nitrate Urine Bilirubin Urine Urobilinogen Ur Leukocyte Esterase Urine RBC Urine WBC Ur Squamous Epith Cells Urine Bacteria Urine Mucus Micro UA Comment Urine Culture Comments - Imaging Impressions Gallbladder Ultrasound 04/24/18 00:00 CONCLUSION: Gallstone. Abdomen/Pelvis CT 04/24/18 12:05 CONCLUSION: Cholelithiasis and findings of pancreatitis without abscess or pseudocyst. No common duct stone is seen Diverticulosis without evidence of diverticulitis. Cholangiopancreatography MRI 04/24/18 15:15 CONCLUSION: 1. Findings of pancreatitis as above. No evidence of common duct stone <Sariah Garces - Last Filed: 04/25/18 10:49> - Labs CBC & Chem 7: 04/27/18 08:28 04/27/18 08:28 Labs: Laboratory Results - last 24 hr 04/26/18 04/26/18 04/27/18 13:46 15:45 08:28 WBC 9.6 RBC 3.38 L Hgb 11.2 L Hct 32.2 L MCV 95.3 MCH 33.2 MCHC 34.9 RDW 13.1 Plt Count 179 MPV 7.6 Neut % (Auto) 81.7 H Lymph % (Auto) 10.6 [place] % (Auto) 7.6 Eos % (Auto) 0.0 Baso % (Auto) 0.1 Neut # (Auto) 7.8 H Lymph # (Auto) 1.0 [place] # (Auto) 0.7 Eos # (Auto) 0.0 Baso # (Auto) 0.0 WBC Differential . Differential Comment Auto diff final Sodium Potassium Chloride Carbon Dioxide Anion Gap BUN Creatinine Estimated GFR Random Glucose Calcium Total Bilirubin AST ALT Alkaline Phosphatase Total Protein Albumin Blood Type A Positive Antibody Screen Positive H Antibody Identification Anti-E Antigen Identification E Antigen - NEGATIVE Direct Antiglob Test Negative MTS Gel Crossmatch See Detail 04/27/18 08:28 WBC RBC Hgb Hct MCV MCH MCHC RDW Plt Count MPV Neut % (Auto) Lymph % (Auto) [place] % (Auto) Eos % (Auto) Baso % (Auto) Neut # (Auto) Lymph # (Auto) [place] # (Auto) Eos # (Auto) Baso # (Auto) WBC Differential Differential Comment Sodium 141 Potassium 4.7 D Chloride 108 H Carbon Dioxide 23.0 Anion Gap 10 BUN 6 L Creatinine 0.73 Estimated GFR 83 L Random Glucose 92 Calcium 8.6 Total Bilirubin 0.5 AST 89 H ALT 58 H Alkaline Phosphatase 71 Total Protein 5.9 L Albumin 2.8 L Blood Type Antibody Screen Antibody Identification Antigen Identification Direct Antiglob Test MTS Gel Crossmatch - Imaging Impressions Cholangiogram,Operative 04/26/18 00:00 CONCLUSION: Filling defects visualized initially are not identified at the end of the study. <Brennan Reese - Last Filed: 04/27/18 15:29> Assessment and Plan (1) Pancreatitis Status: Acute Code(s): K85.90 - Acute pancreatitis without necrosis or infection, unspecified - Plan Assessment: - Pancreatitis visible on MRCP and CT abdomen and pelvis with lipase WNL. Pt presented to ER with complaints of abdominal pain that began suddenly at 230 yesterday morning, aching, constant, located in LUQ and epigastric area and radiating under her L ribcage and into her back- associated nausea and vomiting- began at 630 yesterday morning, denies hematemesis and coffee ground emesis. Symptoms improved since admission, has not needed antiemetics since last night and pain well controlled with last pain med early this morning. Occasional heartburn, not more than once a month. Does reports some RUQ pain after meals, imaging revealed cholelithiasis. Denies history of pancreatitis. ETOH- a few times a week- either 2-3 glasses of wine or 3-4 beers. Has never had EGD or colonoscopy MRCP --> Pancreatitis, no evidence of choledocholithiasis CT abdomen and pelvis W IV contrast --> Pancreatitis, no abscess or pseudocyst. Diverticulosis without diverticulitis Gallbladder US --> Cholelithiasis ?Biliary pancreatitis (although all labs currently WNL) vs ETOH Plan: Start clear liquid diet Repeat labs today IVF Antiemetics PRN Pain medication PRN ETOH cessation Would likely benefit from cholecystectomy at some point- she is known to [place] surgeons, can be done OP Further recommendations based on clinical course Pt has been seen and examined by myself and Dr. Reese and this note is written on his behalf <Sariah Garces - Last Filed: 04/25/18 10:49> (1) Pancreatitis Status: Acute Code(s): K85.90 - Acute pancreatitis without necrosis or infection, unspecified - Attending Attestation Patient seen and examined Agree with above Continue with current supportive care Monitor labs <Brennan Reese - Last Filed: 04/27/18 15:29>
[2018-04-25 14:06] LABS: Baso % (Auto) 0.3 % (0.0-2.0); Eos # (Auto) 0.1 th/mm3 (0.0-0.4); Eos % (Auto) 0.7 % (0.0-4.0); Hemoglobin 13.1 gm/dL (11.6-15.3); Lymph # (Auto) 2.3 th/mm3 (1.0-4.8); Mean Corpuscular HGB Conc 33.6 % (32.0-36.0); Mean Corpuscular Hemoglobin 32.2 pg (27.0-34.0); Mean Corpuscular Volume 95.9 fL (80.0-100.0); Mean Platelet Volume 7.2 fL (7.0-11.0); Mono # (Auto) 0.6 th/mm3 (0.0-0.9); Mono % (Auto) 7.2 % (0.0-8.0); Neut % (Auto) 62.8 % (16.0-70.0); Platelet Count 197 th/mm3 (150-450); Red Blood Count 4.07 mil/mm3 (4.00-5.30); Red Cell Distribution Width 13.5 % (11.6-17.2); White Blood Count 7.9 th/mm3 (4.0-11.0)
--- NOTE | 2018-04-25 14:25 | P.PN ---
Subjective Interval history: Follow up for gallstone pancreatitis. The patient reports feeling much better today. She states her symptoms have now resolved. Denies any abdominal pain, nausea/vomiting, fevers/chills, or diarrhea. She has tolerated clear liquids. She states everyone in her family has gallbladder disease and have required cholecystectomy. She states her daughter works for Dr. Carey's office. Physical Exam Vital signs: Vital Signs 04/24/18 17:52 04/24/18 19:44 04/24/18 23:41 Temperature 98.1 F 98.2 F Pulse Rate 60 62 59 L Respiratory Rate 17 18 20 Blood Pressure 124/74 116/78 128/69 Pulse Oximetry 98 97 96 04/25/18 03:54 04/25/18 06:00 04/25/18 08:00 Temperature 98.3 F 98.8 F Pulse Rate 58 L 60 Respiratory Rate 20 18 Blood Pressure 99/54 L 102/63 103/56 L Pulse Oximetry 96 94 L 04/25/18 12:00 04/25/18 12:17 Temperature 98.3 F Pulse Rate 54 L Respiratory Rate 18 1 L Blood Pressure 107/64 Pulse Oximetry 96 Intake & Output 04/24/18 04/25/18 04/25/18 18:59 06:59 18:59 Intake Total 2029 1000 / 1000 Balance 2029 1000 / 1000 Intake: IV 1999 1000 / 1000 NS Inj 1,000 ML @ 125 mls/hr IV 1000 / 1000 1000 / 1000 .CONT .Q8H [facility] Rx#:[id number] Oral Other: # Voids 1 Date of Last Bowel Movement 04/24/18 Narrative: GENERAL: Well-nourished, well-developed middle aged female patient in [facility]. SKIN: Warm and dry. No rash. HEENT: Normocephalic. Atraumatic. Pupils equal and round. Mucous membranes pink and moist. CARDIOVASCULAR: Regular rate and rhythm. No murmur appreciated. RESPIRATORY: No accessory muscle use. Clear to auscultation. Breath sounds equal bilaterally. GASTROINTESTINAL: Abdomen soft, non-tender, nondistended. Normoactive bowel sounds x4. MUSCULOSKELETAL: No obvious deformities. Extremities without clubbing, cyanosis , or edema. NEUROLOGICAL: Awake and alert. No obvious cranial nerve deficits. Motor grossly within normal limits. Moving all extremities spontaneously. Normal speech. PSYCHIATRIC: Appropriate mood and affect; insight and judgment normal. Results - Labs CBC & Chem 7: 04/25/18 13:20 04/25/18 13:20 Laboratory Results - last 24 hr 04/24/18 04/25/18 12:10 13:20 WBC 7.9 RBC 4.07 Hgb 13.1 D Hct 39.0 MCV 95.9 MCH 32.2 MCHC 33.6 RDW 13.5 Plt Count 197 MPV 7.2 Neut % (Auto) 62.8 Lymph % (Auto) 29.0 [place] % (Auto) 7.2 Eos % (Auto) 0.7 Baso % (Auto) 0.3 Neut # (Auto) 5.0 Lymph # (Auto) 2.3 [place] # (Auto) 0.6 Eos # (Auto) 0.1 Baso # (Auto) 0.0 WBC Differential . Differential Comment Auto diff final Amylase 39 Microbiology 04/24/18 12:05 Random Urine Urine Culture - Final 50-100,000 cfu/mL mixed gram positive ramonita (probable contaminants) - Imaging Impressions Gallbladder Ultrasound 04/24/18 00:00 CONCLUSION: Gallstone. Abdomen/Pelvis CT 04/24/18 12:05 CONCLUSION: Cholelithiasis and findings of pancreatitis without abscess or pseudocyst. No common duct stone is seen Diverticulosis without evidence of diverticulitis. Cholangiopancreatography MRI 04/24/18 15:15 CONCLUSION: 1. Findings of pancreatitis as above. No evidence of common duct stone Assessment and Plan - Plan 52-year-old female presents with intractable abdominal pain, nausea/vomiting, concern for gallstone pancreatitis Acute Pancreatitis: suspected gallstone pancreatitis. -CT abd/pelvis reviewed, shows cholelithiasis and pancreatitis without abscess or pseudocyst. No common duct stone is seen. Diverticulosis without evidence of diverticulitis -GB U/S reviewed, shows 2.6 cm x 0.3 x 0.5 cm calcification seen in the gallbladder fossa R centimeter gallstone within a collapsed gallbladder -MRCP reviewed, shows inflammatory changes in the pancreas, characteristic of pancreatitis -Lipase 335, LFTs wnl -Supportive treatment with IVF, pain control, and antiemetics prn -GI consulted, appreciate recommendations -Symptoms improved, clear liquid diet for now -Discussed with Tina NESBITT with surgery, will plan for laparoscopic cholecystectomy tomorrow -NPO after midnight -Repeat labs in am DVT Prophylaxis: teds/SCDs Discharge Planning: Plan for cholecystectomy tomorrow. Further disposition to follow.
[2018-04-25 14:31] LABS: Albumin 2.9 g/dL (3.4-5.0); Anion Gap 10 meq/L (5-15); Aspartate Aminotransferase 11 U/L (15-37); Blood Urea Nitrogen 10 mg/dL (7-18); Calcium 8.1 mg/dL (8.5-10.1); Carbon Dioxide 21.5 meq/L (21.0-32.0); Chloride 110 meq/L (98-107); Glomerular Filtration Rate 74 mL/min (>89); Glucose,Random 78 mg/dL (74-106); Lipase 335 U/L (73-393); Potassium 3.7 meq/L (3.5-5.1); Sodium 141 meq/L (136-145)
[2018-04-25 14:36] LABS: Alanine Aminotransferase 13 U/L (10-53); Alkaline Phosphatase 73 U/L (45-117); Total Protein 6.1 g/dL (6.4-8.2)
--- NOTE | 2018-04-25 18:00 | P.CONGS ---
[facility] Gen Surgery Consult Note Consult date: 04/25/18 Reason for consult: gallstones Requesting physician: Aminah Polanco Narrative: This is a 52 year old female with no significant past medical history who presented to the ED yesterday with sudden onset of abdominal pain with associated nausea and vomiting. She had two greasy hot dogs and two beers at the [email or web address] on Wednesday evening. The patient reports a large amount of bilious type vomiting. A CT abdomen/pelvis was obtained which showed cholelithiasis. An ultrasound was obtained which shows cholelithiasis. An MRCP was obtained which showed pancreatitis and no common bile duct. Her liver enzymes are normal. Her pain is improved today on exam. A General Surgery consultation has been requested. <Tina Harrison - Last Filed: 04/25/18 17:52> Narrative: CONSULTATION NOTE FOR SURGICAL ATTENDING, DR. FRANK WASHINGTON <Frank Washington - Last Filed: 04/25/18 18:32> Review of Systems Constitutional: Denies body ache(s), Denies chills, Denies fever(s) Eyes: Denies blind spots Ears, Nose, Mouth, and Throat: Denies abnormal hearing Cardiovascular: Denies chest pain, Denies chest pain at rest, Denies chest pain with activity Respiratory: Denies chest congestion, Denies cough Gastrointestinal: Reports abdominal pain, Reports nausea, Reports vomiting Genitourinary: Denies vaginal discharge Musculoskeletal: Denies abnormal walking Skin/Breast: Denies itching, Denies redness Neurologic: Denies abnormal hearing Psychiatric: Denies mood swings Endocrine: Denies cold intolerance, Denies heat intolerance Hematologic/Lymphatic: Denies easy bleeding Allergic/Immunologic: Denies GI upset with certain foods <Tina Harrison - Last Filed: 04/25/18 17:52> PMFSH - History History Provided By: Patient - Medical History Medical History: Medical History (Last Updated 04/24/18 @ 22:40 by Promise Joaquin, ZHANE) delivery delivered - Surgical History Surgical History: Surgical History (Last Updated 04/24/18 @ 22:40 by Promise Joaquin, ZHANE) History of umbilical hernia repair - Tobacco History Second Hand Smoke Exposure: No Tobacco Use In Past 30 Days: Yes Smoking Status: Heavy tobacco smoker Tobacco Type: Cigarettes - Alcohol History How Often Do You Have a Drink Containing Alcohol: 2 to 3 times a week - Substance Use History Substance History: No History of Abuse - Travel History Recent Travel in the [place] Within the Last 8 Weeks: No Recent Travel Out of the Country Within the Last 8 Weeks: No - Immunization History Tetanus Immunization: <5 Years <Tina Harrison - Last Filed: 04/25/18 17:52> - Medical History Medical History: Medical History (Last Reviewed 04/25/18 @ 18:29 by Frank Washington MD) delivery delivered - Surgical History Surgical History: Surgical History (Last Reviewed 04/25/18 @ 18:29 by Frank Washington MD) History of umbilical hernia repair <Frank Washington - Last Filed: 04/25/18 18:32> Medications and Allergies Active Medications: Active Medications Sodium Chloride (Ns Inj) 1,000 mls @ 125 mls/hr IV.CONT .Q8H TOYIN Last Admin: 04/25/18 16:20 Dose: 125 mls/hr Ondansetron HCl (Zofran Odt) 4 mg PO Q6H PRN PRN Reason: NAUSEA Last Admin: 04/24/18 19:49 Dose: 4 mg Oxycodone HCl (Roxicodone) 10 mg PO Q4H PRN PRN Reason: Acute Pain 1-10 Last Admin: 04/25/18 16:46 Dose: 10 mg Sodium Chloride (Ns Flush) 2 ml IV.FLUSH PRN PRN PRN Reason: FLUSH AFTER USING IV ACCESS Sodium Chloride (Ns Flush) 2 ml IV.FLUSH BID [facility] Last Admin: 04/25/18 08:18 Dose: Not Given Sodium Chloride (Ns Flush) 2 ml IV.FLUSH PRN PRN PRN Reason: FLUSH AFTER USING IV ACCESS <Tina Harrison - Last Filed: 04/25/18 17:52> Active Medications: Active Medications Sodium Chloride (Ns Inj) 1,000 mls @ 125 mls/hr IV.CONT .Q8H [facility] Last Admin: 04/25/18 16:20 Dose: 125 mls/hr Ondansetron HCl (Zofran Odt) 4 mg PO Q6H PRN PRN Reason: NAUSEA Last Admin: 04/24/18 19:49 Dose: 4 mg Oxycodone HCl (Roxicodone) 10 mg PO Q4H PRN PRN Reason: Acute Pain 1-10 Last Admin: 04/25/18 16:46 Dose: 10 mg Sodium Chloride (Ns Flush) 2 ml IV.FLUSH PRN PRN PRN Reason: FLUSH AFTER USING IV ACCESS Sodium Chloride (Ns Flush) 2 ml IV.FLUSH BID [facility] Last Admin: 04/25/18 08:18 Dose: Not Given Sodium Chloride (Ns Flush) 2 ml IV.FLUSH PRN PRN PRN Reason: FLUSH AFTER USING IV ACCESS <Frank Washington - Last Filed: 04/25/18 18:32> Allergies Allergy/AdvReac Type Severity Reaction Status Date / Time No Known Allergies Allergy Verified 04/24/18 12:05 Home Medications Medication Instructions Recorded Confirmed Type No Known Home Medications 04/24/18 04/24/18 History Exam Vital signs: Vital Signs 04/24/18 19:44 04/24/18 23:41 04/25/18 03:54 Temperature 98.1 F 98.2 F 98.3 F Pulse Rate 62 59 L 58 L Respiratory Rate 18 20 20 Blood Pressure 116/78 128/69 99/54 L Pulse Oximetry 97 96 96 04/25/18 06:00 04/25/18 08:00 04/25/18 12:00 Temperature 98.8 F 98.3 F Pulse Rate 60 54 L Respiratory Rate 18 18 Blood Pressure 102/63 103/56 L 107/64 Pulse Oximetry 94 L 96 04/25/18 12:17 04/25/18 16:00 Temperature 97.8 F Pulse Rate 52 L Respiratory Rate 1 L Blood Pressure 125/73 Pulse Oximetry 99 Intake & Output 04/24/18 04/25/18 04/25/18 18:59 06:59 18:59 Intake Total 2029 Balance 2029 Intake: IV 1999 NS Inj 1,000 ML @ 125 mls/hr IV 999 .CONT .Q8H TOYIN Rx#:[id number] Oral Other: # Voids 1 Date of Last Bowel Movement 04/24/18 Narrative: GENERAL: Very pleasant 52 year old female resting in bed in no acute distress visiting with sons. SKIN: Warm and dry. HEAD: Atraumatic. Normocephalic. EYES: Pupils equal and round. No scleral icterus. No injection or drainage. ENT: No nasal bleeding or discharge. Mucous membranes pink and moist. NECK: Trachea midline. CARDIOVASCULAR: Regular rate and rhythm. RESPIRATORY: No accessory muscle use. Clear to auscultation. Breath sounds equal bilaterally. GASTROINTESTINAL: Abdomen soft, non distended. Minimal LUQ and RUQ tenderness with palpation. Low transverse scar. MUSCULOSKELETAL: Extremities without clubbing, cyanosis, or edema. No obvious deformities. NEUROLOGICAL: Awake and alert. No obvious cranial nerve deficits. Motor grossly within normal limits. Five out of 5 muscle strength in the arms and legs. Normal speech. PSYCHIATRIC: Appropriate mood and affect; insight and judgment normal. <Tina Harrison - Last Filed: 04/25/18 17:52> Vital signs: Vital Signs 04/24/18 19:44 04/24/18 23:41 04/25/18 03:54 Temperature 98.1 F 98.2 F 98.3 F Pulse Rate 62 59 L 58 L Respiratory Rate 18 20 20 Blood Pressure 116/78 128/69 99/54 L Pulse Oximetry 97 96 96 04/25/18 06:00 04/25/18 08:00 07/16/18 12:00 Temperature 98.8 F 98.3 F Pulse Rate 60 54 L Respiratory Rate 18 18 Blood Pressure 102/63 103/56 L 107/64 Pulse Oximetry 94 L 96 04/25/18 12:17 04/25/18 16:00 Temperature 97.8 F Pulse Rate 52 L Respiratory Rate 1 L Blood Pressure 125/73 Pulse Oximetry 99 Intake & Output 04/24/18 04/25/18 04/25/18 18:59 06:59 18:59 Intake Total 2029 Balance 2029 Intake: IV 1999 NS Inj 1,000 ML @ 125 mls/hr IV 999 .CONT .Q8H TOYIN Rx#:[id number] Oral Other: # Voids 1 Date of Last Bowel Movement 04/24/18 <Frank Washington - Last Filed: 04/25/18 18:32> Results - Labs 04/25/18 13:20 04/25/18 13:20 Abnormal lab results 04/25/18 Range/Units 13:20 Chloride 110 H (98-107) meq/L Estimated GFR 74 L (>89) mL/min Calcium 8.1 L D (8.5-10.1) mg/dL AST 11 L (15-37) U/L Total Protein 6.1 L D (6.4-8.2) g/dL Albumin 2.9 L D (3.4-5.0) g/dL Diabetes panel 04/25/18 Range/Units 13:20 Sodium 141 (136-145) meq/L Potassium 3.7 D (3.5-5.1) meq/L Chloride 110 H (98-107) meq/L Carbon Dioxide 21.5 (21.0-32.0) meq/L BUN 10 (7-18) mg/dL Creatinine 0.81 (0.50-1.00) mg/dL Calcium 8.1 L D (8.5-10.1) mg/dL AST 11 L (15-37) U/L ALT 13 (10-53) U/L Alkaline Phosphatase 73 (45-117) U/L Total Protein 6.1 L D (6.4-8.2) g/dL Albumin 2.9 L D (3.4-5.0) g/dL Calcium panel 04/25/18 Range/Units 13:20 Calcium 8.1 L D (8.5-10.1) mg/dL Albumin 2.9 L D (3.4-5.0) g/dL Pituitary panel 04/25/18 Range/Units 13:20 Sodium 141 (136-145) meq/L Potassium 3.7 D (3.5-5.1) meq/L Chloride 110 H (98-107) meq/L Carbon Dioxide 21.5 (21.0-32.0) meq/L BUN 10 (7-18) mg/dL Creatinine 0.81 (0.50-1.00) mg/dL Calcium 8.1 L D (8.5-10.1) mg/dL Adrenal panel 04/25/18 Range/Units 13:20 Sodium 141 (136-145) meq/L Potassium 3.7 D (3.5-5.1) meq/L Chloride 110 H (98-107) meq/L Carbon Dioxide 21.5 (21.0-32.0) meq/L BUN 10 (7-18) mg/dL Creatinine 0.81 (0.50-1.00) mg/dL Calcium 8.1 L D (8.5-10.1) mg/dL Total Bilirubin 0.4 (0.2-1.0) mg/dL AST 11 L (15-37) U/L ALT 13 (10-53) U/L Alkaline Phosphatase 73 (45-117) U/L Total Protein 6.1 L D (6.4-8.2) g/dL Albumin 2.9 L D (3.4-5.0) g/dL All other labs normal. - Imaging CT scan - abdomen: report reviewed US - abdomen: report reviewed (MRCP) <Tina Harrison - Last Filed: 04/25/18 17:52> - Labs 04/25/18 13:20 04/25/18 13:20 - Imaging CT scan - abdomen: image reviewed CT scan - chest: image reviewed CT scan - pelvis: image reviewed US - abdomen: image reviewed US - pelvic: report reviewed, image reviewed Additional studies: MRCP reviewed <Frank Washington - Last Filed: 04/25/18 18:32> Assessment and Plan - Assessment (1) Gallstone Code(s): K80.20 - Calculus of gallbladder without cholecystitis without obstruction Status: Acute Qualifiers: Biliary obstruction: without biliary obstruction - Plan 52 year old female with gallstone pancreatitis -Plan for OR tomorrow for lap derrell as long as liver enzymes and lipase remain normal -IVF -Clear liquids tonight; NPO after MN -Obtain consent -Explained procedure in detail including risks and benefits -All questions answered -Thank you for this consult; We will continue to follow Discussed Condition With: Dr. Felix NESBITT Ms. Kilpatrick + Mary Anne (daughter) <Tina Harrison - Last Filed: 04/25/18 17:52> - Assessment (1) Gallstone Code(s): K80.20 - Calculus of gallbladder without cholecystitis without obstruction Status: Acute Qualifiers: Cholecystitis acuity: acute Biliary obstruction: without biliary obstruction (2) Abnormal findings on diagnostic imaging of gallbladder Code(s): R93.2 - Abnormal findings on diagnostic imaging of liver and biliary tract Status: Acute (3) Abdominal pain Code(s): R10.9 - Unspecified abdominal pain Status: Acute Qualifiers: Abdominal location: epigastric Qualified Code(s): R10.13 - Epigastric pain - Attending Attestation NOTE FOR SURGICAL ATTENDING, DR. FRANK WASHINGTON I agree with above assessment and plan. Patient has abdominal pain Imaging all reviewed Has finding of pancreatitis on imaging Plan laparoscopic cholecystectomy tomorrow The exam, history, and the medical decision-making described in the above note were completed with the assistance of the mid-level provider. I reviewed and agree with the findings presented. I attest that I had a [id number] encounter with the patient on the same day, and personally performed and documented my assessment and findings in the medical record. The following services were provided during this hospital visit: Chart data review, vital sign assessments/reviewing monitor data Review of consultations notes if present. Medication orders/review and/or management Ordering and/or reviewing lab tests Ordering and/or interpreting/reviewing x-rays and/or diagnostic studies Care of the patient and discussion of the patient with the care team Documentation time To help prompt me to consider important information that might be impacting today's encounter and assessment, Information from prior notes written by myself or my colleagues may have been "brought forward/copy and pasted" into today's note. <Frank Washington - Last Filed: 04/25/18 18:32>
[2018-04-26] MEDS: Sod Chloride 0.9% Inj 1,000 ML IV.CONT SCH ×4 (02:29→17:32)
[2018-04-26 05:45] LABS: Alanine Aminotransferase 15 U/L (10-53); Albumin 2.8 g/dL (3.4-5.0); Anion Gap 8 meq/L (5-15); Aspartate Aminotransferase 18 U/L (15-37); Blood Urea Nitrogen 6 mg/dL (7-18); Calcium 7.9 mg/dL (8.5-10.1); Carbon Dioxide 23.2 meq/L (21.0-32.0); Chloride 111 meq/L (98-107); Cholesterol 130 mg/dL (120-200); Glomerular Filtration Rate 72 mL/min (>89); Glucose,Random 79 mg/dL (74-106); Lipase 185 U/L (73-393); Potassium 3.9 meq/L (3.5-5.1); Sodium 142 meq/L (136-145); Triglycerides 117 mg/dL (42-150)
[2018-04-26 05:48] LABS: Alkaline Phosphatase 80 U/L (45-117); Chol/HDL Ratio 3.44 Ratio; HDL Cholesterol 37.7 mg/dL (40.0-60.0)
[2018-04-26] MEDS ORDERED: Sodium Chlor 0.9% Inj 500 ML IV.SIG ONE (06:00)
[2018-04-26] MEDS ORDERED: Bupivacaine/Epinephrine Inj 0.25% 50 ML Vial ONE (11:40)
[2018-04-26] MEDS ORDERED: Lidocaine PF 1% Inj 5 ML Syringe INFILTRATN ONE (12:00)
[2018-04-26] MEDS ORDERED: Sugammadex Inj 200 MG/2 ML Vial IV.PUSH ONE (12:33)
[2018-04-26] MEDS ORDERED: Albumin Human 25% Inj 50 ML IV.SIG ONE (13:42)
[2018-04-26 14:12] LABS: Hematocrit 35.2 % (35.0-46.0); Hemoglobin 11.9 gm/dL (11.6-15.3); Mean Corpuscular HGB Conc 33.9 % (32.0-36.0); Mean Corpuscular Hemoglobin 32.4 pg (27.0-34.0); Mean Corpuscular Volume 95.4 fL (80.0-100.0); Mean Platelet Volume 7.6 fL (7.0-11.0); Platelet Count 212 th/mm3 (150-450); Red Blood Count 3.69 mil/mm3 (4.00-5.30); Red Cell Distribution Width 12.9 % (11.6-17.2); White Blood Count 7.5 th/mm3 (4.0-11.0)
[2018-04-26] MEDS ORDERED: HYDROmorphone PF Inj 2 MG/ML Vial IV.PUSH ONE (15:02)
[2018-04-26] MEDS ORDERED: Naloxone Inj 0.4 MG/ML Vial IV.PUSH PRN (15:02)
[2018-04-26] MEDS ORDERED: Morphine Inj 4 MG/ML Vial ONE (15:13)
[2018-04-26] MEDS ORDERED: fentaNYL Citrate Inj 100 MCG/2 ML Ampul ONE (15:13)
[2018-04-26] MEDS ORDERED: *morphine SULFATE 4 MG/ML PERIprocedure ONLY ONE (15:13)
[2018-04-26] MEDS: *morphine SULFATE 4 MG/ML PERIprocedure ONLY ONE (15:24)
[2018-04-26] MEDS ORDERED: HYDROmorphone PF Inj 2 MG/ML Vial ONE ×3 (15:46→16:36)
[2018-04-26] MEDS: HYDROmorphone PCA Inj 6 MG/30 ML PCA.VIAL PCA PRN (16:00)
--- NOTE | 2018-04-26 16:39 | P.PN ---
Subjective Interval history: 52-year-old female who is seen today for follow-up on gallstone pancreatitis. Patient was seen in postop. Patient with rather complicated cholecystitis. With adhesions and required open cholecystectomy. Patient is mildly sedated. She appears to be comfortable. Vital signs are stable, patient remains afebrile Physical Exam Vital signs: Vital Signs 04/25/18 17:20 04/25/18 20:00 04/26/18 00:00 Temperature 97.8 F 98.2 F Pulse Rate 56 L 56 L Respiratory Rate 2 L 17 17 Blood Pressure 124/71 106/56 L Pulse Oximetry 96 95 04/26/18 08:00 Temperature 98.0 F Pulse Rate 64 Respiratory Rate 18 Blood Pressure 118/54 L Pulse Oximetry 96 Intake & Output 04/25/18 04/26/18 04/26/18 18:59 06:59 18:59 Intake Total 1999 / 1999 1240 / 1240 3000 / 3000 Output Total 500 / 500 Balance 1999 / 1999 1240 / 1240 2500 / 2500 Weight 79.2 kg Intake: IV 1999 / 1999 1000 / 1000 NS Inj 1,000 ML @ 125 mls/hr IV 2000 / 1999 1000 / 1000 .CONT .Q8H TOYIN Rx#:[id number] Oral 240 / 240 Anesthesia Amount 3000 / 3000 Output: Estimated Blood Loss 500 / 500 Other: # Voids 1 2 1 Date of Last Bowel Movement 04/24/18 Weight On Admission 79.2 kg Narrative: GENERAL: Well-developed, well-nourished, in no acute distress. alert mildly lethargic and postop HEENT: Head is normocephalic without any lesions or masses noted. Facial features are symmetric. Eyes: Extraocular muscles are intact. Conjunctivae were clear. NECK: Supple without any masses. Trachea midline no deviation. No JVD, CARDIAC: Regular rhythm, regular rate. S1/S2 are heard. No murmurs gallops or rubs. LUNGS: Clear to auscultation bilaterally. No wheeze, rhonchi or rales. No use of accessory muscles on inspiration or expiration. ABDOMEN: Abdomen was not examined due to recent surgery and abdominal binder. EXTREMITIES: No edema, pulses are equal bilaterally. No cyanosis or clubbing NEUROLOGY: Mood and affect appear appropriate. Cranial nerves II through XII grossly intact. Results - Labs CBC & Chem 7: 04/26/18 13:44 04/26/18 04:52 Laboratory Results - last 24 hr 04/26/18 04/26/18 04/26/18 04:52 13:44 13:46 WBC 7.5 RBC 3.69 L Hgb 11.9 Hct 35.2 MCV 95.4 MCH 32.4 MCHC 33.9 RDW 12.9 Plt Count 212 MPV 7.6 Sodium 142 Potassium 3.9 Chloride 111 H Carbon Dioxide 23.2 Anion Gap 8 BUN 6 L Creatinine 0.83 Estimated GFR 72 L Random Glucose 79 Calcium 7.9 L Total Bilirubin 0.5 AST 18 ALT 15 Alkaline Phosphatase 80 Total Protein 6.0 L Albumin 2.8 L Triglycerides 117 Cholesterol 130 HDL Cholesterol 37.7 L Cholesterol/HDL Ratio 3.44 Lipase 185 Blood Type A Positive Antibody Screen Positive H Antibody Identification Antigen Identification E Antigen - NEGATIVE Direct Antiglob Test Negative MTS Gel Crossmatch See Detail 04/26/18 15:45 WBC RBC Hgb Hct MCV MCH MCHC RDW Plt Count MPV Sodium Potassium Chloride Carbon Dioxide Anion Gap BUN Creatinine Estimated GFR Random Glucose Calcium Total Bilirubin AST ALT Alkaline Phosphatase Total Protein Albumin Triglycerides Cholesterol HDL Cholesterol Cholesterol/HDL Ratio Lipase Blood Type Antibody Screen Antibody Identification Anti-E Antigen Identification Direct Antiglob Test MTS Gel Crossmatch Microbiology 04/24/18 12:05 Random Urine Urine Culture - Final 50-100,000 cfu/mL mixed gram positive ramonita (probable contaminants) - Imaging Gallbladder Ultrasound 04/24/18 00:00 CONCLUSION: Gallstone. Abdomen/Pelvis CT 04/24/18 12:05 CONCLUSION: Cholelithiasis and findings of pancreatitis without abscess or pseudocyst. No common duct stone is seen Diverticulosis without evidence of diverticulitis. Cholangiopancreatography MRI 04/24/18 15:15 CONCLUSION: 1. Findings of pancreatitis as above. No evidence of common duct stone Assessment and Plan - Plan Gallstone pancreatitis -CT scan shows cholelithiasis and findings of pancreatitis without abscess or pseudocyst. -MRCP shows findings of pancreatitis. No evidence of common duct stone -Gallbladder ultrasound was performed which did show a 2.6 x 0.3 x 0.3 calcifications seen in the gallbladder fossa with a collapsed gallbladder -Gastroenterology consultation was done, recommended EtOH cessation, patient would benefit from cholecystectomy at some point. -General surgery was consulted and patient was taken to the OR today, patient had complicated procedure with adhesions and was changed to an open cholecystectomy -Continue pain control per general surgery -Advance diet when recommended by general surgery DVT prevention -Sequential compression devices Discharge Planning: Discharge planning once cleared by general surgery
--- NOTE | 2018-04-26 17:38 | XR ---
EXAM DATE: 04/26/2018 5:22 PM EDT AGE/SEX: 52 years / Female INDICATIONS: Obstruction. CLINICAL DATA: This is the patient's initial encounter. Patient reports that signs and symptoms have been present for 1 day and indicates a pain score of Nonresponsive. MEDICAL/SURGICAL HISTORY: None. None. COMPARISON: No prior exams available for comparison. FINDINGS: In the operating room, the cystic duct stump was injected and radiographs obtained. The examination demonstrates filling defects within the bile ducts could be gas bubbles and at the en d of the examination therefore not visualized. Alternatively they could have been small stones. CONCLUSION: Filling defects visualized initially are not identified at the end of the study. Electronically signed by: Viraj Gay MD 04/26/2018 5:37 PM EDT
--- NOTE | 2018-04-26 19:39 | MP ---
cc: Frank Washington MD DATE OF OPERATION: 04/26/2018 PREOPERATIVE DIAGNOSIS: Cholelithiasis, cholecystitis, history of gallstone pancreatitis. POSTOPERATIVE DIAGNOSIS: Cholelithiasis, cholecystitis, history of gallstone pancreatitis, with chronic and acute inflammation of the gallbladder. PROCEDURE PERFORMED: Attempted laparoscopic cholecystectomy converted to open cholecystectomy, with intraoperative cholangiogram. TYPE OF ANESTHESIA: General. SURGEON: Frank Washington MD SENIOR FINANCIAL REPORTING ACCOUNTANT: Dr. Marsh. presence was necessary throughout the case for appropriate retraction, dissection, visualization, and resection of the important anatomical structures during the critical parts of the surgical procedure. INDICATIONS FOR PROCEDURE: This is a 52-year-old female who was recently admitted to the hospital with severe abdominal pain, was found that she had gallstones on CT, MRCP and ultrasound. She had a slight pancreatitis as well. Plans were made for above. DESCRIPTION OF PROCEDURE: The patient taken to the operating room, placed in supine position . After anesthesia, a Veress needle was placed in her umbilicus, after prepping and draping and doing a timeout and giving preoperative antibiotics. Making an incision, Veress needle was inserted. A saline load test was performed and co2 use to 15 mmHg. A 10 mm trocar was introduced. A camera was introduced. We were able to place 5 mm below the xiphoid and 5 mm in between the 2 previously placed ports. She does have some mild omental adhesions to the anterior abdominal wall. These were taken down with blunt dissection. We then were able to see the gallbladder is somewhat contracted and very inflamed. We attempt to dissect this out laparoscopically. We were able to remove the transverse colon from the adhesions along the gallbladder. With grasping the gallbladder, it simply falls apart. We did make some progress laparoscopically, but it became very apparent that this was unable to be done laparoscopically and for this reason was converted to open. We made a subcostal incision utilizing the subxiphoid port site. Entered the abdomen by incising the rectus muscle and entering the abdomen. Dr. Marsh came into the room to assist me with retraction, mobilization and identification of anatomy and clinical decision making because of this complex case. The gallbladder was very contracted, is full of stones. It is a rock hard wall and there was some concern of malignancy. We did send the gallbladder down to pathology and no malignancy was identified by frozen section. Further dissection was carried out along the gallbladder fossa with much inflammation of the liver edge that had to be stopped with hemostatic agents. We were able to grasp this gallbladder and carefully tease this out using a combination of blunt dissection, electrocautery device, the Harmonic scalpel, all the way down to the cystic duct, after carefully teasing away the duodenum and the transverse colon and the omentum that was fairly adhesed to this area. Once we were able to identify the common duct and the cystic duct by opening the gallbladder and placing a probe into the cystic duct, we were able to get around the cystic duct and this is then cut. We then placed a cholangiogram catheter into the cystic duct stent segment. Cholangiogram is done showing free flow into the duodenum and the right hepatic and left hepatic ducts. Initially, there was some defect that were felt to be air bubbles, as they could not be reproduced on the second attempt. The cholangiogram catheter was then removed and the cystic duct stump with the arteries doubly ligated with a Hemoclip. Again, there was excellent hemostasis. Because of the amount of inflammatory response, we did place a SEEMA in the gallbladder fossa. Hemostatic agents along the liver edge that stopped bleeding. We then closed the subcostal incision in a double layer with 0 Vicryl the first layer and 0 Vicryl the second layer. The skin was then reapproximated with the skin stapling device. The SEEMA was brought out through the right port site, the umbilical port site, where the umbilical hernia was closed with 0 Vicryl. The skin is then closed with a skin stapler device. SORAYA dressing is applied and a Band-Aid applied to the other sites. The patient tolerated the procedure well, had approximately 400 mL of blood loss. Returned to the recovery room. I discussed intraoperative findings with the family by phone. MD HESHAM Mehta/ROSE , 07:00 PM , 07:38 PM THI
--- NOTE | 2018-04-26 20:48 | ECG ---
Date Performed: 04/25/2018 Time Performed: 22:49:58 PTAGE: 52 years EKG: SINUS BRADYCARDIA BORDERLINE ECG NO PREVIOUS TRACING DOCTOR: Barney Javier Interpretating Date/Time 04/26/2018 20:46:51
[2018-04-27] MEDS: Sod Chloride 0.9% Inj 1,000 ML IV.CONT SCH ×2 (01:43→15:27)
[2018-04-27] MEDS: HYDROmorphone PCA Inj 6 MG/30 ML PCA.VIAL PCA PRN (07:25)
[2018-04-27 09:01] LABS: Baso % (Auto) 0.1 % (0.0-2.0); Hematocrit 32.2 % (35.0-46.0); Hemoglobin 11.2 gm/dL (11.6-15.3); Lymph % (Auto) 10.6 % (9.0-44.0); Mean Corpuscular HGB Conc 34.9 % (32.0-36.0); Mean Corpuscular Hemoglobin 33.2 pg (27.0-34.0); Mean Corpuscular Volume 95.3 fL (80.0-100.0); Mean Platelet Volume 7.6 fL (7.0-11.0); Mono # (Auto) 0.7 th/mm3 (0.0-0.9); Mono % (Auto) 7.6 % (0.0-8.0); Neut # (Auto) 7.8 th/mm3 (1.8-7.7); Neut % (Auto) 81.7 % (16.0-70.0); Platelet Count 179 th/mm3 (150-450); Red Blood Count 3.38 mil/mm3 (4.00-5.30); Red Cell Distribution Width 13.1 % (11.6-17.2); White Blood Count 9.6 th/mm3 (4.0-11.0)
[2018-04-27 09:30] LABS: Alanine Aminotransferase 58 U/L (10-53); Albumin 2.8 g/dL (3.4-5.0); Alkaline Phosphatase 71 U/L (45-117); Anion Gap 10 meq/L (5-15); Aspartate Aminotransferase 89 U/L (15-37); Blood Urea Nitrogen 6 mg/dL (7-18); Calcium 8.6 mg/dL (8.5-10.1); Chloride 108 meq/L (98-107); Glomerular Filtration Rate 83 mL/min (>89); Glucose,Random 92 mg/dL (74-106); Potassium 4.7 meq/L (3.5-5.1); Sodium 141 meq/L (136-145); Total Protein 5.9 g/dL (6.4-8.2)
--- NOTE | 2018-04-27 13:48 | P.PNGS ---
<Tina Harrison - Last Filed: 04/27/18 13:46> Subjective Interval history: Doing well; pain controlled; was up several times during the night to go the bathroom; feeling hungry Physical Exam Vital signs: Vital Signs 04/26/18 15:03 04/26/18 15:15 04/26/18 15:30 Temperature 97.6 F Pulse Rate 72 66 63 Respiratory Rate 16 16 16 Blood Pressure 129/73 131/74 127/71 Pulse Oximetry 97 97 95 04/26/18 15:45 04/26/18 16:00 04/26/18 16:15 Temperature Pulse Rate 69 58 L 69 Respiratory Rate 16 18 18 Blood Pressure 124/67 124/74 113/64 Pulse Oximetry 97 95 96 04/26/18 16:30 04/26/18 16:45 04/26/18 17:00 Temperature 97.7 F Pulse Rate 64 58 L 65 Respiratory Rate 18 18 19 Blood Pressure 124/70 127/76 115/67 Pulse Oximetry 95 95 96 04/26/18 17:59 04/26/18 20:00 04/27/18 00:00 Temperature 97.8 F 98 F 98.1 F Pulse Rate 59 L 51 L 56 L Respiratory Rate 17 17 17 Blood Pressure 120/73 133/68 142/76 H Pulse Oximetry 96 97 92 L 04/27/18 04:00 04/27/18 08:00 04/27/18 12:00 Temperature 98.3 F 98.3 F 98.1 F Pulse Rate 59 L 67 62 Respiratory Rate 17 5 L 18 Blood Pressure 139/74 119/62 136/66 Pulse Oximetry 95 94 L 96 04/27/18 12:24 Temperature Pulse Rate Respiratory Rate 18 Blood Pressure Pulse Oximetry Intake & Output 04/26/18 04/27/18 04/27/18 18:59 06:59 18:59 Intake Total 4000 / 4000 1240 / 1240 Output Total 850 / 850 715 / 715 Balance 3150 / 3150 525 / 525 Weight 78.5 kg Intake: IV 1000 / 1000 1000 / 1000 NS Inj 1,000 ML @ 125 mls/hr IV 1000 / 1000 1000 / 1000 .CONT .Q8H [facility] Rx#:[id number] Oral 0 / 0 240 / 240 Anesthesia Amount 3000 / 3000 Output: Urine 300 / 300 600 / 600 Estimated Blood Loss 500 / 500 Wound Drainage 50 / 50 115 / 115 # 1 Abdomen 50 / 50 115 / 115 Other: # Voids 1 3 Date of Last Bowel Movement 04/24/18 # Bowel Movements 0 Narrative: Alert and awake Cardio: RRR Resp: CTAB Abd: RUQ SORAYA in place with good seal; SEEMA with serosanguineous drainage Assessment and Plan - Assessment (1) Gallstone Code(s): K80.20 - Calculus of gallbladder without cholecystitis without obstruction Status: Acute (2) Abnormal findings on diagnostic imaging of gallbladder Code(s): R93.2 - Abnormal findings on diagnostic imaging of liver and biliary tract Status: Acute (3) Abdominal pain Code(s): R10.9 - Unspecified abdominal pain Status: Acute - Plan 52 year old female with gallstone pancreatitis -POD1 lap derrell converted to open cholecystectomy and cholangiogram -Advance to full liquids -LEAD RAMP AGENT for pain control + Ophelia -IS -OOB and mobilize -Labs stable <Frank Omer - Last Filed: 04/28/18 07:28> Subjective Patient reports: feels better, flatus Interval history: DAILY PROGRESS NOTE FOR SURGICAL ATTENDING, DR. FRANK OMER Physical Exam Vital signs: Vital Signs 04/27/18 08:00 04/27/18 12:00 04/27/18 12:24 Temperature 98.3 F 98.1 F Pulse Rate 67 62 Respiratory Rate 5 L 18 18 Blood Pressure 119/62 136/66 Pulse Oximetry 94 L 96 04/27/18 16:00 04/27/18 20:00 04/28/18 00:00 Temperature 97.8 F 98 F 98 F Pulse Rate 63 96 H 62 Respiratory Rate 18 20 20 Blood Pressure 126/80 111/69 100/56 L Pulse Oximetry 96 96 96 Intake & Output 04/27/18 04/28/18 04/28/18 18:59 06:59 18:59 Intake Total 800 / 800 1480 / 1480 Output Total 1780 / 1780 530 / 530 Balance -980 / -980 1480 / 1480 -530 / -530 Intake: IV 1000 / 1000 NS Inj 1,000 ML @ 84 mls/hr IV. 1000 / 1000 CONT .[id number] [facility] Rx#:[id number] Oral 800 / 800 480 / 480 Output: Urine 1700 / 1700 500 / 500 Wound Drainage 80 / 80 30 / 30 # 1 Abdomen 80 / 80 30 / 30 Other: # Voids 2 - Constitutional no acute distress - Routine Abdominal Exam Present: soft, wound, drain - Routine Neurological Exam Present: alert, oriented X3 - Detailed Neurological Exam: Coma Scale Eye Opening: Spontaneous - Routine Psychiatric Exam Present: normal affect Assessment and Plan - Assessment (1) S/P cholecystectomy Code(s): Z90.49 - Acquired absence of other specified parts of digestive tract Status: Acute (2) Gallstone Code(s): K80.20 - Calculus of gallbladder without cholecystitis without obstruction Status: Acute (3) Abdominal pain Code(s): R10.9 - Unspecified abdominal pain Status: Acute (4) Pancreatitis Code(s): K85.90 - Acute pancreatitis without necrosis or infection, unspecified Status: Acute - Plan NOTE FOR SURGICAL ATTENDING, DR. FRANK OMER I agree with above assessment and plan. The exam, history, and the medical decision-making described in the above note were completed with the assistance of the mid-level provider. I reviewed and agree with the findings presented. I attest that I had a [id number] encounter with the patient on the same day, and personally performed and documented my assessment and findings in the medical record. The following services were provided during this hospital visit: Chart data review, vital sign assessments/reviewing monitor data Review of consultations notes if present. Medication orders/review and/or management Ordering and/or reviewing lab tests Ordering and/or interpreting/reviewing x-rays and/or diagnostic studies Care of the patient and discussion of the patient with the care team Documentation time To help prompt me to consider important information that might be impacting today's encounter and assessment, Information from prior notes written by myself or my colleagues may have been "brought forward/copy and pasted" into today's note. <Lizbeth Harrisonhryn - Last Filed: 04/27/18 13:46> (1) Gallstone Qualifiers: Cholecystitis acuity: acute Biliary obstruction: without biliary obstruction (3) Abdominal pain Qualifiers: Abdominal location: epigastric Qualified Code(s): R10.13 - Epigastric pain <FelixFrank - Last Filed: 04/28/18 07:28> (2) Gallstone Qualifiers: Cholecystitis acuity: acute and chronic Biliary obstruction: without biliary obstruction (3) Abdominal pain Qualifiers: Abdominal location: epigastric Qualified Code(s): R10.13 - Epigastric pain (4) Pancreatitis Qualifiers: Chronicity: acute Pancreatitis type: biliary
[2018-04-28] MEDS: Sod Chloride 0.9% Inj 1,000 ML IV.CONT SCH (03:12)
[2018-04-28 04:43] LABS: Hematocrit 28.5 % (35.0-46.0); Hemoglobin 9.8 gm/dL (11.6-15.3); Mean Corpuscular HGB Conc 34.6 % (32.0-36.0); Mean Corpuscular Volume 95.6 fL (80.0-100.0); Mean Platelet Volume 7.5 fL (7.0-11.0); Platelet Count 156 th/mm3 (150-450); Red Blood Count 2.98 mil/mm3 (4.00-5.30); Red Cell Distribution Width 13.1 % (11.6-17.2); White Blood Count 7.7 th/mm3 (4.0-11.0)
--- NOTE | 2018-04-28 10:47 | P.PNGS ---
<HunterTina - Last Filed: 04/28/18 11:25> Subjective Interval history: Walked in the hallways this morning; Pain controlled; not using BIOENGINEER too much Son at bedside Physical Exam Vital signs: Vital Signs 04/27/18 12:00 04/27/18 12:24 04/27/18 16:00 Temperature 98.1 F 97.8 F Pulse Rate 62 63 Respiratory Rate 18 18 18 Blood Pressure 136/66 126/80 Pulse Oximetry 96 96 04/27/18 20:00 04/28/18 00:00 04/28/18 08:00 Temperature 98 F 98 F 98.6 F Pulse Rate 96 H 62 60 Respiratory Rate 20 20 18 Blood Pressure 111/69 100/56 L 113/64 Pulse Oximetry 96 96 93 L Intake & Output 04/27/18 04/28/18 04/28/18 18:59 06:59 18:59 Intake Total 800 / 800 1480 / 1480 Output Total 1780 / 1780 530 / 530 Balance -980 / -980 1480 / 1480 -530 / -530 Intake: IV 1000 / 1000 NS Inj 1,000 ML @ 84 mls/hr IV. 1000 / 1000 CONT .[id number] [facility] Rx#:[id number] Oral 800 / 800 480 / 480 Output: Urine 1700 / 1700 500 / 500 Wound Drainage 80 / 80 30 / 30 # 1 Abdomen 80 / 80 30 / 30 Other: # Voids 2 Date of Last Bowel Movement 04/24/18 Narrative: Alert and awake Cardio: RRR Resp: CTAB Abd: SORAYA in place with good seal; SEEMA with SS drainage; minimal post op pain Assessment and Plan - Assessment (1) S/P cholecystectomy Code(s): Z90.49 - Acquired absence of other specified parts of digestive tract Status: Acute (2) Gallstone Code(s): K80.20 - Calculus of gallbladder without cholecystitis without obstruction Status: Acute (3) Abdominal pain Code(s): R10.9 - Unspecified abdominal pain Status: Acute (4) Pancreatitis Code(s): K85.90 - Acute pancreatitis without necrosis or infection, unspecified Status: Acute - Plan 52 year old female with gallstone pancreatitis -POD2 lap derrell converted to open cholecystectomy and cholangiogram -Advance to regular diet; okay for family to bring food from home -DC BIOENGINEER; [place] PRN + Dilaudid IV PRN for breakthrough pain -IS -OOB and mobilize -Labs stable -Start Lovenox <Frank Omer - Last Filed: 04/28/18 19:08> Subjective Patient reports: feels better, flatus ( ---DAILY PROGRESS NOTE FOR SURGICAL ATTENDING, DR. FRANK OMER ) Physical Exam Vital signs: Vital Signs 04/27/18 20:00 04/28/18 00:00 04/28/18 08:00 Temperature 98 F 98 F 98.6 F Pulse Rate 96 H 62 60 Respiratory Rate 20 20 18 Blood Pressure 111/69 100/56 L 113/64 Pulse Oximetry 96 96 93 L 04/28/18 12:00 04/28/18 16:00 Temperature 97.8 F 98.0 F Pulse Rate 70 80 Respiratory Rate 18 18 Blood Pressure 142/65 H 142/71 H Pulse Oximetry 93 L 96 Intake & Output 04/28/18 04/28/18 04/29/18 06:59 18:59 06:59 Intake Total 1480 / 1480 1800 / 1800 Output Total 2340 / 2340 Balance 1480 / 1480 -540 / -540 Intake: IV 1000 / 1000 NS Inj 1,000 ML @ 84 mls/hr IV. 1000 / 1000 CONT .[id number] [facility] Rx#:[id number] Oral 480 / 480 1800 / 1800 Output: Urine 2300 / 2300 Wound Drainage 40 / 40 # 1 Abdomen 40 / 40 Other: # Voids 2 Date of Last Bowel Movement 04/24/18 - Constitutional no acute distress - Routine Respiratory Exam Comments: Walking halls without difficulty no shortness of breath - Routine Abdominal Exam Present: wound, drain Comments: Soraya dressing intact Assessment and Plan - Assessment (1) S/P cholecystectomy Code(s): Z90.49 - Acquired absence of other specified parts of digestive tract Status: Acute (2) Gallstone Code(s): K80.20 - Calculus of gallbladder without cholecystitis without obstruction Status: Acute (3) Abdominal pain Code(s): R10.9 - Unspecified abdominal pain Status: Resolved (4) Pancreatitis Code(s): K85.90 - Acute pancreatitis without necrosis or infection, unspecified Status: Acute - Attending Attestation NOTE FOR SURGICAL ATTENDING, DR. FRANK OMER Anticipate discharge tomorrow Follow-up in my office next week for drain removal and soraya dressing change I agree with above assessment and plan. The exam, history, and the medical decision-making described in the above note were completed with the assistance of the mid-level provider. I reviewed and agree with the findings presented. I attest that I had a [id number] encounter with the patient on the same day, and personally performed and documented my assessment and findings in the medical record. The following services were provided during this hospital visit: Chart data review, vital sign assessments/reviewing monitor data Review of consultations notes if present. Medication orders/review and/or management Ordering and/or reviewing lab tests Ordering and/or interpreting/reviewing x-rays and/or diagnostic studies Care of the patient and discussion of the patient with the care team Documentation time To help prompt me to consider important information that might be impacting today's encounter and assessment, Information from prior notes written by myself or my colleagues may have been "brought forward/copy and pasted" into today's note. <Tina Harrison - Last Filed: 04/28/18 11:25> (2) Gallstone Qualifiers: Cholecystitis acuity: acute and chronic Biliary obstruction: without biliary obstruction (3) Abdominal pain Qualifiers: Abdominal location: epigastric Qualified Code(s): R10.13 - Epigastric pain (4) Pancreatitis Qualifiers: Chronicity: acute Pancreatitis type: biliary <Frank Omer - Last Filed: 04/28/18 19:08> (2) Gallstone Qualifiers: Cholecystitis acuity: acute and chronic Biliary obstruction: without biliary obstruction (3) Abdominal pain Qualifiers: Abdominal location: epigastric Qualified Code(s): R10.13 - Epigastric pain (4) Pancreatitis Qualifiers: Chronicity: acute Pancreatitis type: biliary
--- NOTE | 2018-04-28 11:34 | P.PNIM ---
Subjective Interval history: Mrs. Kilpatrick was afebrile with stable VS overnight. Patient reports she is doing well. She is off of IV pain medications. Patient has been ambulating well. Patient has been passing gas; no BM. Normal respiratory function; normal urine output. Patient is hopeful to be discharged tomorrow and follow-up with general surgery next Wednesday Physical Exam Vital signs: Vital Signs 04/27/18 12:00 04/27/18 12:24 04/27/18 16:00 Temperature 98.1 F 97.8 F Pulse Rate 62 63 Respiratory Rate 18 18 Blood Pressure 136/66 126/80 Pulse Oximetry 96 96 04/27/18 20:00 04/28/18 00:00 04/28/18 08:00 Temperature 98 F 98 F 98.6 F Pulse Rate 96 H 62 60 Respiratory Rate 18 Blood Pressure 111/69 100/56 L 113/64 Pulse Oximetry 96 96 93 L Intake & Output 04/27/18 04/28/18 04/28/18 18:59 06:59 18:59 Intake Total 800 / 800 1480 / 1480 Output Total 1780 / 1780 530 / 530 Balance -980 / -980 1480 / 1480 -530 / -530 Intake: IV 1000 / 1000 NS Inj 1,000 ML @ 84 mls/hr IV. 1000 / 1000 CONT .[id number] Rx#:[id number] Oral 800 / 800 480 / 480 Output: Urine 1700 / 1700 500 / 500 Wound Drainage 80 / 80 30 / 30 # 1 Abdomen 80 / 80 30 / 30 Other: # Voids 2 Date of Last Bowel Movement 04/24/18 Narrative: Gen: NAD Skin: drain w/ serosanguinous fluid Resp:CTAB; normal rate CV: normal peripheral perfusion. Regular rate and rhythm Abd: drain in place. Patient with abdominal binder. Soft abdomen without significant tenderness; normal BS MSK: Grossly normal ROM and strength Neuro: Normal CN. Grossly normal peripheral motor/sensory function Results - Labs CBC & Chem 7: 04/28/18 04:08 04/27/18 08:28 Laboratory Results - last 24 hr 04/28/18 04:08 WBC 7.7 RBC 2.98 L Hgb 9.8 L Hct 28.5 L MCV 95.6 MCH 33.0 MCHC 34.6 RDW 13.1 Plt Count 156 MPV 7.5 Assessment and Plan - Plan Mrs. Kilpatrick is a 52 yo F with: Gallstone pancreatitis Impression: Patient is POD 2 from lap-> open cholecystectomy/cholangiogram. CT on admission showed cholelithiasis and findings of pancreatitis without abscess or pseudocyst. MRCP shows findings of pancreatitis. No evidence of common duct stone Gallbladder ultrasound was performed which did show a 2.6 x 0.3 x 0.3 calcifications seen in the gallbladder fossa with a collapsed gallbladder Gastroenterology consultation was done, recommended EtOH cessation, patient would benefit from cholecystectomy -Postoperative care -Continue OOB/mobilization -Continue incentive spirometry -Continue pain control -Regular diet -Plan for f/u next week Anemia Impression: Hgb 16-> 9.8; suspect post-operative decrease. Stable; no concern for internal bleeding -Recommended mineral replacement as outpatient -Continue to monitor CBC Alcohol abuse -Cessation encouraged DVT PPX Lovenox 40mg daily Code Status: Full code Discharge Planning: Pending surgical clearance; anticipate discharge tomorrow
[2018-04-28] MEDS ORDERED: HYDROmorphone PF Inj 2 MG/ML Vial IV.PUSH PRN (12:00)
[2018-04-28] MEDS: Enoxaparin Inj 40 MG/0.4 ML Syringe SQ SCH (13:06)
[2018-04-29] MEDS: Enoxaparin Inj 40 MG/0.4 ML Syringe SQ SCH (09:01)
[2018-04-29 09:32] LABS: Baso % (Auto) 0.4 % (0.0-2.0); Eos # (Auto) 0.1 th/mm3 (0.0-0.4); Eos % (Auto) 2.2 % (0.0-4.0); Hematocrit 30.8 % (35.0-46.0); Hemoglobin 10.3 gm/dL (11.6-15.3); Lymph # (Auto) 1.5 th/mm3 (1.0-4.8); Lymph % (Auto) 26.5 % (9.0-44.0); Mean Corpuscular HGB Conc 33.5 % (32.0-36.0); Mean Corpuscular Hemoglobin 31.9 pg (27.0-34.0); Mean Corpuscular Volume 95.3 fL (80.0-100.0); Mean Platelet Volume 7.8 fL (7.0-11.0); Mono # (Auto) 0.4 th/mm3 (0.0-0.9); Mono % (Auto) 7.2 % (0.0-8.0); Neut # (Auto) 3.7 th/mm3 (1.8-7.7); Neut % (Auto) 63.7 % (16.0-70.0); Platelet Count 170 th/mm3 (150-450); Red Blood Count 3.23 mil/mm3 (4.00-5.30); Red Cell Distribution Width 13.1 % (11.6-17.2); White Blood Count 5.8 th/mm3 (4.0-11.0)
--- NOTE | 2018-04-29 09:50 | P.PNGS ---
<HunterTina - Last Filed: 04/29/18 10:11> Subjective Interval history: Resting in bed Has been OOB walking in the hallways Physical Exam Vital signs: Vital Signs 04/28/18 12:00 04/28/18 16:00 04/28/18 20:00 Temperature 97.8 F 98.0 F 98.5 F Pulse Rate 70 80 78 Respiratory Rate 18 18 18 Blood Pressure 142/65 H 142/71 H 107/62 Pulse Oximetry 93 L 96 98 04/29/18 00:00 04/29/18 08:00 Temperature 98.3 F 98.7 F Pulse Rate 67 67 Respiratory Rate 18 16 Blood Pressure 116/66 121/71 Pulse Oximetry 94 L 95 Intake & Output 04/28/18 04/29/18 04/29/18 18:59 06:59 18:59 Intake Total 1800 / 1800 Output Total 2340 / 2340 Balance -540 / -540 Intake: Oral 1800 / 1800 Output: Urine 2300 / 2300 Wound Drainage 40 / 40 # 1 Abdomen 40 / 40 Other: Date of Last Bowel Movement 04/24/18 Narrative: Alert and awake Cardio: RRR Resp: CTAB Abd: SORAYA in place with good seal; SEEMA with SS drainage No edema Assessment and Plan - Assessment (1) S/P cholecystectomy Code(s): Z90.49 - Acquired absence of other specified parts of digestive tract Status: Acute (2) Gallstone Code(s): K80.20 - Calculus of gallbladder without cholecystitis without obstruction Status: Acute (3) Abdominal pain Code(s): R10.9 - Unspecified abdominal pain Status: Resolved (4) Pancreatitis Code(s): K85.90 - Acute pancreatitis without necrosis or infection, unspecified Status: Acute - Plan 52 year old female with gallstone pancreatitis -POD3 lap derrell converted to open cholecystectomy and cholangiogram -Continue regular diet; okay for family to bring food from home -[place] PRN for pain -IS -OOB and mobilize -Labs stable -Follow up with Dr. Washington for drain removal and SORAYA removal on Wednesday at 1: 40PM -GS clear for DC -Discussed with Dr. Dickinson <Frank Washington - Last Filed: 04/29/18 17:31> Physical Exam Vital signs: Vital Signs 04/28/18 20:00 04/29/18 00:00 04/29/18 08:00 Temperature 98.5 F 98.3 F 98.7 F Pulse Rate 78 67 67 Respiratory Rate 18 18 16 Blood Pressure 107/62 116/66 121/71 Pulse Oximetry 98 94 L 95 Intake & Output 04/28/18 04/29/18 04/29/18 18:59 06:59 18:59 Intake Total 1800 / 1800 Output Total 2340 / 2340 Balance -540 / -540 Intake: Oral 1800 / 1800 Output: Urine 2300 / 2300 Wound Drainage 40 / 40 # 1 Abdomen 40 / 40 Other: Date of Last Bowel Movement 04/24/18 04/24/18 Assessment and Plan - Assessment (1) S/P cholecystectomy Code(s): Z90.49 - Acquired absence of other specified parts of digestive tract Status: Acute (2) Gallstone Code(s): K80.20 - Calculus of gallbladder without cholecystitis without obstruction Status: Acute (3) Abdominal pain Code(s): R10.9 - Unspecified abdominal pain Status: Resolved (4) Pancreatitis Code(s): K85.90 - Acute pancreatitis without necrosis or infection, unspecified Status: Acute <Tina Harrison - Last Filed: 04/29/18 10:11> (2) Gallstone Qualifiers: Cholecystitis acuity: acute and chronic Biliary obstruction: without biliary obstruction (3) Abdominal pain Qualifiers: Abdominal location: epigastric Qualified Code(s): R10.13 - Epigastric pain (4) Pancreatitis Qualifiers: Chronicity: acute Pancreatitis type: biliary <Frank Washington - Last Filed: 04/29/18 17:31> (2) Gallstone Qualifiers: Cholecystitis acuity: acute and chronic Biliary obstruction: without biliary obstruction (3) Abdominal pain Qualifiers: Abdominal location: epigastric Qualified Code(s): R10.13 - Epigastric pain (4) Pancreatitis Qualifiers: Chronicity: acute Pancreatitis type: biliary
[2018-04-29 09:55] LABS: Alanine Aminotransferase 27 U/L (10-53); Albumin 2.5 g/dL (3.4-5.0); Anion Gap 10 meq/L (5-15); Aspartate Aminotransferase 24 U/L (15-37); Blood Urea Nitrogen 4 mg/dL (7-18); Calcium 8.3 mg/dL (8.5-10.1); Carbon Dioxide 24.6 meq/L (21.0-32.0); Chloride 108 meq/L (98-107); Glomerular Filtration Rate Greater Than 89 mL/min (>89); Glucose,Random 79 mg/dL (74-106); Potassium 3.3 meq/L (3.5-5.1); Sodium 143 meq/L (136-145)
[2018-04-29 09:59] LABS: Alkaline Phosphatase 66 U/L (45-117); Total Protein 5.7 g/dL (6.4-8.2)
--- NOTE | 2018-04-29 10:47 | P.PNIM ---
Subjective Interval history: Mrs. Kilpatrick was afebrile with stable VS overnight. Patient states that she has been doing well. Ambulating well. Passing gas. Normal oral intake. Patient has some continued abdominal pain but it is improved. She has been using incentive spirometry. Patient eager for discharge home. Physical Exam Vital signs: Vital Signs 04/28/18 12:00 04/28/18 16:00 04/28/18 20:00 Temperature 97.8 F 98.0 F 98.5 F Pulse Rate 70 80 78 Respiratory Rate 18 18 18 Blood Pressure 142/65 H 142/71 H 107/62 Pulse Oximetry 93 L 96 98 04/29/18 00:00 04/29/18 08:00 Temperature 98.3 F 98.7 F Pulse Rate 67 67 Respiratory Rate 18 16 Blood Pressure 116/66 121/71 Pulse Oximetry 94 L 95 Intake & Output 04/28/18 04/29/18 04/29/18 18:59 06:59 18:59 Intake Total 1800 / 1800 Output Total 2340 / 2340 Balance -540 / -540 Intake: Oral 1800 / 1800 Output: Urine 2300 / 2300 Wound Drainage 40 / 40 # 1 Abdomen 40 / 40 Other: Date of Last Bowel Movement 04/24/18 Narrative: Gen: NAD Skin: drain w/ serosanguinous fluid; wound vac appears to be working Resp:CTAB; normal rate CV: normal peripheral perfusion. Regular rate and rhythm Abd: drain in place. Patient with abdominal binder. Soft abdomen without significant tenderness; normal BS MSK: Grossly normal ROM and strength Neuro: Normal CN. Grossly normal peripheral motor/sensory function Results - Labs CBC & Chem 7: 04/29/18 08:40 04/29/18 08:40 Laboratory Results - last 24 hr 04/26/18 04/29/18 04/29/18 13:46 08:40 08:40 WBC 5.8 RBC 3.23 L Hgb 10.3 L Hct 30.8 L MCV 95.3 MCH 31.9 MCHC 33.5 RDW 13.1 Plt Count 170 MPV 7.8 Neut % (Auto) 63.7 Lymph % (Auto) 26.5 [place] % (Auto) 7.2 Eos % (Auto) 2.2 Baso % (Auto) 0.4 Neut # (Auto) 3.7 Lymph # (Auto) 1.5 [place] # (Auto) 0.4 Eos # (Auto) 0.1 Baso # (Auto) 0.0 WBC Differential . Differential Comment Auto diff final Sodium 143 Potassium 3.3 L Chloride 108 H Carbon Dioxide 24.6 Anion Gap 10 BUN 4 L Creatinine 0.62 Estimated GFR Greater than 89 Random Glucose 79 Calcium 8.3 L Total Bilirubin 0.5 AST 24 ALT 27 Alkaline Phosphatase 66 Total Protein 5.7 L Albumin 2.5 L MTS Gel Crossmatch See Detail Assessment and Plan - Plan Mrs. Kilpatrick is a 52 yo F with: Gallstone pancreatitis Impression: Patient is POD 3 from lap-> open cholecystectomy/cholangiogram. CT on admission showed cholelithiasis and findings of pancreatitis without abscess or pseudocyst. MRCP shows findings of pancreatitis. No evidence of common duct stone Gallbladder ultrasound was performed which did show a 2.6 x 0.3 x 0.3 calcifications seen in the gallbladder fossa with a collapsed gallbladder Gastroenterology consultation was done, recommended EtOH cessation, patient would benefit from cholecystectomy -Postoperative care -Stable for discharge today per General surgery -Continue OOB/mobilization -Continue incentive spirometry -Continue pain control -Regular diet -Plan for f/u next Wednesday with Dr. Washington Anemia Impression: Hgb 16->10.3 today; stable. suspect post-operative decrease. no concern for internal bleeding -Recommended iron supplementation as outpatient Alcohol abuse -Cessation encouraged DVT PPX Lovenox 40mg daily while inpatient; patient now ambulatory Code Status: Full code Discharge Planning: Pending surgical clearance; anticipate discharge tomorrow
--- NOTE | 2018-04-30 23:52 | P.DS ---
Date of admission: 04/24/18 15:31 Primary care physician: No Primary Care Physician Attending physician on discharge: Jhonatan Dickinson Brief History from admission: 52-year-old white female being admitted for suspected gallstone pancreatitis. Patient was in usual state of health until around 2 AM earlier this morning she woke up with some abdominal pain. Pain is worse progressed to a 9/10. Was alleviated with bending forward. Was greater on her left upper quadrant comparison to her right. Had some nausea and subjective fevers as well. Ultimately had some bilious emesis around 4 AM, was unable to hold down liquids. The evening prior the patient reports having to greasy hotdogs. Emergency department the patient had a CT abdomen done which showed an inflamed pancreas although her lipase was within normal limits. She also has her even MRCP done which shows no common bile duct dilatation. The patient states that at least for the past month she has had intermittent dyspepsia associated specifically with greasier meals. Patient reports that since her 's about 3 years ago she did drink about a pack a night for about 4 nights a week for that year. Since then she says she is tapered off and now drinks only on the weekends. DS: Diagnosis - Discharge Diagnosis (1) S/P cholecystectomy Status: Acute (2) Gallstone Status: Acute (3) Pancreatitis Status: Acute DS: Medications - Discharge Medications Prescriptions: hydrocodone-acetaminophen 1 tab PO Q4H PRN #15 tab PRN Reason: acute post op pain DS: Summary Hospital Course: Mrs. Kilpatrick is a 52 yo F with PMH of tobacco and alcohol use who presented to [facility] 04/24 with abdominal pain and vomiting which was "bile colored". Labs on admission with normal LFT's. MRI/CT imaging on admission suggestive of pancreatitis and presence of gallstones; no suggestion of choledocholithiasis. Gallbladder US also suggestive of cholelithiasis. GI consulted, patient given IVF, and given clear liquid diet. Surgery consulted; patient underwent cholecystectomy 04/26 which was converted from laparoscopic to open. Patient did well post-operatively and was discharged home 04/29 to follow-up with Dr. Washington the following week. During hospitalization, patient was found to have stable anemia. Benefit was counselled regarding alcohol cessation during hospitalization. - Time Spent with Patient Total time spent providing and/or coordinating discharge services: - Quality: VTE Deep Vein Thrombosis/Pulmonary Embolism Present on Admission: No Exam Vital signs: VS on day of discharge: T98.7, HR 67, RR 16, BP 121/71, O2 sat 95% Narrative: Gen: NAD Skin: drain w/ serosanguinous fluid; wound vac appears to be working Resp:CTAB; normal rate CV: normal peripheral perfusion. Regular rate and rhythm Abd: drain in place. Patient with abdominal binder. Soft abdomen without significant tenderness; normal BS MSK: Grossly normal ROM and strength Neuro: Normal CN. Grossly normal peripheral motor/sensory function Results Procedures completed during hospitalization: open cholecystectomy 04/26 Completed studies during hospitalization: Pending at discharge 04/26/18 14:11 Surgical [PTH] Stat - Impressions ITS Impressions Gallbladder Ultrasound 04/24/18 00:00 CONCLUSION: Gallstone. Abdomen/Pelvis CT 04/24/18 12:05 CONCLUSION: Cholelithiasis and findings of pancreatitis without abscess or pseudocyst. No common duct stone is seen Diverticulosis without evidence of diverticulitis. Cholangiopancreatography MRI 04/24/18 15:15 CONCLUSION: 1. Findings of pancreatitis as above. No evidence of common duct stone Cholangiogram,Operative 04/26/18 00:00 CONCLUSION: Filling defects visualized initially are not identified at the end of the study. Discharge Plan - Discharge Disposition Patient Disposition: 01 Discharge Home - Discharge Condition Condition: Stable - Discharge Order Discharge Orders: Discharge Order (Routine); Ordered 04/29/18 Ordered By: Jhonatan Dickinson General Surgery Clear for Discharge (Routine); Ordered 04/29/18 Ordered By: Tina Harrison - Discharge Details Anticipated Discharge Date: 04/29/18 - Physicians Team Primary Care Provider: Primary Care Jenny Ruiz Attending Provider: Jhonatan Dickinson Other Providers: Vinay Sylvester MD ; Frank Washington MD
== END 2018-04-29 13:07 | disposition home or self-care (01) ==
LOC: NEPD 10:09 → NEDA 15:31 → NEPHCDU 19:27 → N07 04-25 20:14
PROVIDERS: ADMIT Family Medicine; ATTEND Family Medicine
PROC: [UNRECOGNIZED PROCEDURE] (2018-04-26 12:08)